=== PATIENT | female | born 1960 | race Caucasian/White ===

== ENCOUNTER 2022-09-23 09:51 | Outpatient (OUT) | payer OTHER, SELFPAY ==
--- NOTE | 2022-09-23 10:31 | XR_ITS ---
The [address] [address] Patient Name: IWLLY ALVAREZ MRN: [id number] date: 1960 Sex: F Assigned Patient Location: [facility] Current Patient Location: RAD Accession/Order Number: [id number] Exam Date: 09/23/2022 10:30 Report Date: 09/23/2022 19:05 At the request of: QUINTEN KILGORE Procedure: XR foot LT min 3V PROCEDURE: XR foot LT min 3V COMPARISON: None. HISTORY: LEFT FOOT PAIN FINDINGS: BONES:No acute fracture or dislocation. Moderate to severe degenerative changes most significant along the navicular cuneiform joints. There is bony remodeling of the navicular with subchondral lytic changes. Marginal osteophyte formation SOFT TISSUES:Moderate soft tissue swelling dorsal midfoot EFFUSION:None visible. OTHER: Negative. XR/XR foot LT min 3V IMPRESSION: Degenerative changes of the midfoot with soft tissue swelling Electronically authenticated by: KIT PACHECO Date: 09/23/2022 19:05
== END 2022-09-23 09:52 | disposition home or self-care (01) ==
LOC: RAD 09:52
PROVIDERS: Visit Provider Podiatrist Foot & Ankle Surgery
DX: M79.672 Pain in left foot (principal)
CPT/HCPCS: 73630

== ENCOUNTER 2022-09-30 09:12 | Outpatient (OUT) | payer OTHER, SELFPAY ==
--- NOTE | 2022-09-30 09:53 | CT_ITS ---
The [address] [address] Patient Name: WILLY ALVAREZ MRN: [id number] date: 1960 Sex: F Assigned Patient Location: CT Current Patient Location: CT Accession/Order Number: [id number] Exam Date: 09/30/2022 09:45 Report Date: 09/30/2022 12:48 At the request of: QUINTEN KILGORE Procedure: CT foot LT wo con CT foot LT wo con CLINICAL HISTORY: Left Ankle Primary Osteoarthritis M19.072. COMPARISON: 09/23/2022. TECHNIQUE: Noncontrast axial CT of the left foot. Bone and soft tissue windows provided for review. Sagittal and coronal reconstructions performed. Dose reduction techniques were achieved by using automated exposure control and/or adjustment of mA and/or kV according to patient size and/or use of iterative reconstruction technique. FINDINGS: No fracture or dislocation left foot. Mild diffuse soft tissue edema with no focal mass or collection rate plantar foot muscles. Plantar fascial and Achilles tendon grossly intact and normal thickness. Mild degenerative change throughout the IP joints. Minimal degenerative change of the great toe joint. Relatively severe degenerative change throughout much of the mid right especially talonavicular joint, navicular-cuneiform and second TMT joint. Mild degenerative change of the subtalar joints and tibiotalar joint. No erosions or periostitis. CT/CT foot LT wo con IMPRESSION: Degenerative change most significant at the left midfoot as detailed without acute bony process. Electronically authenticated by: MANSOOR MCINTOSH Date: 09/30/2022 12:48
== END 2022-09-30 09:13 | disposition home or self-care (01) ==
LOC: CT 09:13
PROVIDERS: Visit Provider Podiatrist Foot & Ankle Surgery
DX: M19.072 Primary osteoarthritis, left ankle and foot (principal); Q66.72 Congenital pes cavus, left foot
CPT/HCPCS: 73700

== ENCOUNTER 2022-11-03 12:20 | Outpatient (OUT) | payer OTHER, SELFPAY ==
--- NOTE | 2022-11-03 12:21 | ECG_ITS ---
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
--- NOTE | 2022-11-03 13:18 | PM.PRESUREVA ---
History of Present Illness History of Present Illness Chief complaint: osteoarthritis left ankle and foot Narrative: Patient presents for preadmission testing. Please see HPI from Dr. Carmona dated 10/21/2022. Review of Systems ROS Narrative Please see ROS from Dr. Carmona dated 10/21/2022. [facility] Medical History (Updated 11/03/22 @ 12:51 by Irma Dickson NP) Surgical History (Updated 11/03/22 @ 12:50 by Irma Dickson NP) Family History (Updated 11/03/22 @ 12:50 by Irma Dickson NP) Other Family history of DVT Family history of cancer Family history of heart disease Family history of myocardial infarction Family history of stroke Social History (Updated 11/03/22 @ 12:46 by Irma Dickson NP) Within the past year, how often did you have a drink containing alcohol: 2-4 times a month Smoking status: Former smoker Non-prescribed substance use: denies use Previous occupational history: Retired Highest level of school completed/degree received: high school graduate Meds Home Medications and Allergies Home Medications Medication Instructions Recorded Confirmed Type acetyltyrosine 350 mg-vitamin B6 5 cap PO 11/03/22 History mg capsule ascorbic acid (vitamin C) 1,000 mg 1 g PO DAILY 11/03/22 11/03/22 History capsule aspirin 81 mg capsule 81 mg PO .3 times a week 11/03/22 11/03/22 History calcium 100 mg capsule mg PO 11/03/22 History cholecalciferol (vitamin D3) 25 25 mcg PO DAILY 11/03/22 11/03/22 History mcg (1,000 unit) capsule lactobacillus combination no.4 3 3,000 mmu cells PO DAILY 11/03/22 11/03/22 History billion cell capsule (Probiotic) levothyroxine 25 mcg tablet 25 mcg PO QDAY 11/03/22 11/03/22 History magnesium 200 mg tablet 200 mg PO DAILY 11/03/22 11/03/22 History Allergies Allergy/AdvReac Type Severity Reaction Status Date / Time No Known Drug Allergies Allergy Verified 11/03/22 12:43 Exam Narrative Exam Narrative: Constitutional: Awake, alert, comfortable, well-appearing, nontoxic, interactive, vital signs as charted Head: Normocephalic, atraumatic Neck: Supple, normal appearance, normal range of motion, no meningeal signs, no lymphadenopathy Respiratory: No respiratory distress, breath sounds clear Cardiovascular: Regular rate and rhythm, strong and regular heart tones Psychiatric: Oriented ?3, normal affect Assessment and Plan Assessment and Plan (1) Ankle contracture: (2) Aseptic necrosis: (3) Arthritis: (4) Osteoarthritis of left ankle and foot: (5) Pes cavus: (6) Valgus deformity of foot: (7) Varus deformity, not elsewhere classified, left ankle: Plan Left midfoot/hindfoot fusion with osteotomies and soft tissue balancing, bone graft as needed, excision of bone lesion of anterior tibia scheduled with Dr. Carmona 11/17/2022.
[2022-11-03 13:30] LABS: Anion Gap 10.5; BUN Creatinine Ratio 18.5; Calcium 8.9 mg/dL (8.5-10.1); Carbon Dioxide 29.4 mmol/L (21.0-32.0); Chloride 103 mmol/L (98-107); Estimated GFR (African America >60 (>=60); Estimated GFR (Non-African Ame >60 (>=60); Glucose 88 mg/dL (74-106); Potassium 3.9 mmol/L (3.5-5.1); Sodium 139 mmol/L (136-145)
== END 2022-11-03 12:21 | disposition home or self-care (01) ==
LOC: PST 12:21
PROVIDERS: Visit Provider Podiatrist Foot & Ankle Surgery
DX: Z01.810 Encounter for preprocedural cardiovascular examination (principal); Z01.812 Encounter for preprocedural laboratory examination; M19.072 Primary osteoarthritis, left ankle and foot; M21.172 Varus deformity, not elsewhere classified, left ankle; I10 Essential (primary) hypertension
CPT/HCPCS: 80048; 93005; G0463

== ENCOUNTER 2022-11-18 16:21 | Observation (INO) | payer OTHER, SELFPAY ==
[2022-11-03 13:06] VITALS: BP 127/78; PULSE 71; RESP 18; TEMP 36.4; O2SAT 97; BMI 33.6
[2022-11-17] VITALS (12 sets, daily range): BP systolic 97–123; BP diastolic 62–77; PULSE 65–92; RESP 14–20; TEMP 36.3–37; O2SAT 91–98; BMI 34.3
--- NOTE | 2022-11-17 | XR_ITS ---
The [address] [address] Patient Name: WILLY ALVAREZ MRN: [id number] date: 1960 Sex: F Assigned Patient Location: [facility] Current Patient Location: [place] Accession/Order Number: [id number] Exam Date: 11/17/2022 13:18 Report Date: 11/18/2022 07:13 At the request of: QUINTEN IKLGORE Procedure: XR foot LT 2V EXAM: XR foot LT 2V HISTORY: Left foot fusion COMPARISON: 09/23/2022 TECHNIQUE: 2 minutes and 31 seconds of fluoroscopy. 17 images FINDINGS: 17 images demonstrate foot fusion utilizing multiple plates and screws. Posterior subtalar fusion. Medial foot fusion extending from the first metatarsal to the talus. Dorsal plate and screws across the talonavicular joint. 2 screws across the first and second tarsometatarsal joints XR/XR foot LT 2V IMPRESSION: Foot fusion as detailed above Electronically authenticated by: KIT PACHECO Date: 11/18/2022 07:13
[2022-11-17 08:54] LABS: Glucometer 93 mg/dL (74-106)
[2022-11-17 09:07] LABS: Basophils Absolute Auto 0.1 10^3/uL (0.0-0.1); Basophils Percent Auto 1.2 % (0.2-2.0); Eosinophils Absolute Auto 0.2 10^3/uL (0.0-0.7); Eosinophils Percent Auto 2.3 % (0.9-7.0); Hematocrit 43.2 % (36.0-48.0); Hemoglobin 14.3 g/dL (12.0-16.0); Immature Granulocytes Abs Auto 0.01 10^3/uL (0.00-0.03); Immature Granulocytes Pct Auto 0.2 % (0.0-0.5); Lymphocytes Percent Auto 30.4 % (20.5-60.0); Mean Corpuscular HGB Conc 33.1 g/dL (29.9-35.2); Mean Corpuscular Volume 93.5 fL (81.0-99.0); Mean Platelet Volume 9.1 fL (9.5-13.5); Monocytes Absolute Auto 0.6 10^3/uL (0.3-0.8); Monocytes Percent Auto 9.5 % (1.7-12.0); Neutrophils Absolute Auto 3.7 10^3/uL (1.4-6.5); Neutrophils Percent Auto 56.4 % (43.0-75.0); Platelet Count 318 10^3/uL (150-450); Red Blood Count 4.62 10^6/uL (4.20-5.40); Red Cell Distribution Width 12.6 % (11.0-15.0); White Blood Count 6.6 10^3/uL (4.0-11.0)
[2022-11-17] MEDS: LACTATED RINGER'S SOLUTION 1,000 ML 50 ML IV (10:00)
--- NOTE | 2022-11-17 11:21 | PC.NURSE ---
time out completed as documented. pt placed on 2L O2 via nasal cannula per policy. pt positioned per anesthesia and the femoral block began at 1100 and was completed at 1107. pt repositoned per , popliteal block began at 1108 and completed at 1112. pt tolerated well and had no complaints. pt positioned per her comfort. bed in lowest position with siderails up and bed in lowest position. vitals monitored throughout procedure and will be monitored until pt is taken back to the OR.
[2022-11-17] MEDS: CEFAZOLIN SODIUM/DEXTROSE,ISO 2 GM/50 ML PIGGYBACK IV ×2 (13:21→20:53)
--- NOTE | 2022-11-17 16:30 | P.ORON_ITS ---
Brief Operative Note Date of procedure: 11/17/22 Pre-op diagnosis: left foot arthritis, hindfoot varus/forefoot valgus, equinus, ostosis Post-op diagnosis: other (left midfoot and hindfoot arthritis, hindfoot varus/forefoot valgus, equinus, ostosis/phlebolith anterior leg; cavovarus foot deformity) Procedure: PROCEDURES PERFORMED: left subtalar joint fusion, talonavicular joint fusion, navicular cuneiform joint fusion, 1st and 2nd tarsometatarsal joint fusion, g astrocnemius recession, excision of a phlebolith, application of short leg splint and intraoperative fluoroscopy examination INTRAOPERATIVE FINDINGS: Hindfoot varus and forefoot valgus were notable with advanced arthritic changes along the medial column and midfoot joints as well as subtalar joint. Bone quality was soft and consistent with osteopenia/osteoporosis. Collapse of the lateral aspect of the navicular. Osteophytes and arthritic changes to the dorsal midfoot. less than 0.5 cm firm mass in anterior leg. Ankle joint dorsiflexion to neutral but not past. PROCEDURE IN DETAIL: Patient was identified in pre op and consent was reviewed. Correct side and site were identified and marked. Pre-op antibiotics were started. Patient was brought to OR suite and place on table in a supine position. General anesthesia was administered. Tourniquet applied. Operative extremity was prepped and draped in usual sterile fashion. Formal time-out was performed and the foot/ankle were exsanguinated and tourniquet inflated. A longitudinal incision over the medial aspect of the gastrocnemius aponeurosis was performed. Combination of sharp and blunt dissection with all bleeders being coagulated gained access to the gastrocnemius aponeurosis. Once the aponeurosis was isolated a speculum was inserted from the medial to lateral position just superficial to the aponeurosis. The speculum allowed full visualization of the aponeurosis and the foot was held in maximal dorsiflexed position. A fifteen blade was used to transversely incise the gastrocnemius aponeurosis until ten degrees of ankle joint dorsiflexion was obtained. The area was flushed with copious sterile saline and skin was closed in layers. She centimeter incision was placed over a palpable firm and small mass in the anterior leg. Blunt dissection along the fascial plane revealed a less than 0.5 cm mass which was excised and passed back table for specimen. The mass was encapsulated and calcified based on fluoroscopic examination. An incision from fibular malleolus to the cuboid was undertaken. Combination of sharp and blunt dissection gained access to the sinus tarsi. All bleeders were tied off or cauterized. EDB muscle was reflected and tagged for later approximation. Sinus tarsectomy was then performed. Hintermann distractor was used to access the subtalar joint which was prepped with curettes, osteotomes, rongeurs and drill with 2.0 mm drill.The posterior and the middle facet was thoroughly prepped. An incision between the tibialis anterior and extensor hallucis longus tendon was utilized with sharp and blunt dissection. All bleeders were coagulated. Care was taken to protect neurovascular and tendinous structures. Deep dissection to the talonavicular joint was performed followed by blunt dissection directly onto the joint expose the entire joint. The talar head and navicular were then prepped with curettes, osteotomes, rongeurs and drill with 2.0 mm drill. This incision was extended distally to the proximal 1st metatarsal shaft. Further dissection allowed exposure of the lateral talonavicular joint, naviculocuneiform joints as well as 1st and 2nd tarsometatarsal joints. the lateral aspect of the navicular was debrided of nonviable bone. These joints were also prepared for fusion using similar technique. There is noted that the area was poor and consistent with osteopenia/osteoporosis. All fusion sites were irrigated with copious amounts of sterile saline. Bone allograft was packed into all of the fusion sites. a 3 cm incision was placed on the posterior calcaneus and blunt dissection was taken down to bone. In the subtalar joint was pinned with a guidewire while reducing the heel into a rectus position. Once fluoroscopy confirmed proper placement and alignment an 8.0 mm bolt was placed across the subtalar joint noting significant compression. Then the medial column was pinned with multiple guidewires from the 1st metatarsal base and into the talar body while holding reduction. A 5.5 mm bolt was placed accordingly noting significant compression. additional fixation was placed across the subtalar joint through the posterior heel incision using a 5.5 mm bolt which was placed according to the enrollment nurse's standard directions. a sagittal saw and hand rasp were used to contour the medial column and midfoot removing all bony prominences and osteophytes. Then a 3.5 mm locking plate was placed over the dorsal talonavicular joint. a stab incision was placed fluoroscopically just lateral to the 2nd metatarsal shaft. A guidewire was used to pin the 2nd tarsometatarsal joint which was then fixated with a 4.0 mm cannulated screw. Then a stab incision was placed on the medial aspect of the 1st metatarsal and blunt dissection was taken down to bone. A guidewire was placed from the 1st metatarsal base across the tarsometatarsal joint and into the cuneiforms. Stability was achieved across the midfoot medial column and subtalar joints and all temporary fixation was removed. All surgical sites were flushed with copious saline then the medial column and subtalar joint incisions were closed deeply with absorbable suture and the tourniquet was deflated with a prompt hyperemic response. All incisions were then closed in layers. A dry sterile dressing consisting of Xeroform on the incisions followed by 4 x 4 gauze, ABDs, and Kerlix were applied. Multiple layers of cast padding were then applied to ensure all bony prominences were well-padded. A plaster posterior splint was then applied which was held in place by Jamison wraps. Capillary refill time to all digits was evaluated and had appropriate response. Patient tolerated the procedure and anesthesia well and was transported to the recovery room with vital signs stable. POSTOPERATIVE PLAN: Transfer to med/surg under hospitalist's care NWB operative foot/ankle Ice and elevation Kim-op antibiotics, multimodal pain medication and DVT prophylaxis ordered Consults: physical therapy & socially responsible investment adviser Estimated LOS 2-3 nights Will follow *NWB x 6-8 weeks Implants: Vilex redemption bolts, 4.0 mm cannulated screws, 3.5 mm TNJ plate Anesthesia: regional and General-ET Surgeon: Will Carmona Crossing Gateman: Simon Carter Estimated blood loss (mL): 25 Pathology: none sent Condition: stable Disposition: PACU Preoperative Details Reason for procedure: patient is a 62-year-old female who presents in my office for surgical consultation. She is a long standing history of midfoot and hindfoot arthritis which is caused progressive pain and dysfunction. 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 On examination she had reduced ankle joint dorsiflexion and a small palpable firm mass anterior leg which is consistent with a phlebolith. Due to failure to respond to nonsurgical treatment she wished to proceed with surgical intervention and I outlined the potential risks and benefits and all questions were answered.
[2022-11-17 17:11] LABS: Glucometer 114 mg/dL (74-106)
--- NOTE | 2022-11-17 17:19 | PC.NURSE ---
left toes pink and warm with brisk capillary refill
--- NOTE | 2022-11-17 17:42 | XR_ITS ---
The [address] [address] Patient Name: WILLY ALVAREZ MRN: [id number] date: 1960 Sex: F Assigned Patient Location: [facility] Current Patient Location: [facility] Accession/Order Number: [id number] Exam Date: 11/17/2022 17:35 Report Date: 11/18/2022 07:08 At the request of: JOANN BOWEN Procedure: XR ankle LT min 3V PROCEDURE: XR ankle LT min 3V, XR foot LT min 3V COMPARISON: None. HISTORY: postop xr pacu or floor FINDINGS: BONES:Subtalar fusion with 2 cannulated screws. Dorsal talonavicular fusion with a plate and screws. Fixation of the first and second tarsometatarsal joints with screws. Fixation of the medial foot with a screw extending from the first metatarsal to the calcaneus SOFT TISSUES:Negative. No visible soft tissue swelling. EFFUSION:None visible. OTHER: Bone details obscured by an overlying fiberglass cast XR/XR ankle LT min 3V IMPRESSION: Postsurgical changes as detailed above Electronically authenticated by: KIT PACHECO Date: 11/18/2022 07:08
--- NOTE | 2022-11-17 17:42 | XR_ITS ---
The [address] [address] Patient Name: WILLY ALVAREZ MRN: [id number] date: 1960 Sex: F Assigned Patient Location: [facility] Current Patient Location: [facility] Accession/Order Number: [id number] Exam Date: 11/17/2022 17:35 Report Date: 11/18/2022 07:08 At the request of: JOANN BOWEN Procedure: XR foot LT min 3V PROCEDURE: XR ankle LT min 3V, XR foot LT min 3V COMPARISON: None. HISTORY: postop xr pacu or floor FINDINGS: BONES:Subtalar fusion with 2 cannulated screws. Dorsal talonavicular fusion with a plate and screws. Fixation of the first and second tarsometatarsal joints with screws. Fixation of the medial foot with a screw extending from the first metatarsal to the calcaneus SOFT TISSUES:Negative. No visible soft tissue swelling. EFFUSION:None visible. OTHER: Bone details obscured by an overlying fiberglass cast XR/XR foot LT min 3V IMPRESSION: Postsurgical changes as detailed above Electronically authenticated by: KIT PACHECO Date: 11/18/2022 07:08
--- NOTE | 2022-11-17 18:02 | PC.NURSE ---
left toes pink and warm
--- NOTE | 2022-11-17 18:08 | PC.NURSE ---
left toes pink and warm
[2022-11-17] MEDS: ENOXAPARIN SODIUM 40 MG/0.4 ML SYRINGE SUBQ (18:14)
--- NOTE | 2022-11-17 19:54 | PC.NURSE ---
surgery to left foot dressing CDI
[2022-11-18] MEDS: CEFAZOLIN SODIUM/DEXTROSE,ISO 2 GM/50 ML PIGGYBACK IV ×3 (04:04→20:32)
[2022-11-18] MEDS: OXYCODONE HCL 5 MG TABLET PO ×2 (04:11→20:24)
[2022-11-18 06:00] VITALS: BP 111/64; PULSE 75; RESP 18; TEMP 36.8; O2SAT 96
--- NOTE | 2022-11-18 08:19 | CM.NOTE ---
Rounds made with Dr. Murguia, PT will evaluate pt today for discharge needs. Pt has used crutches in the past without issues. Pt states I also have been practicing at home.
[2022-11-18] MEDS: OXYCODONE HCL 5 MG TABLET 10 MG PO (08:36)
--- NOTE | 2022-11-18 08:54 | PM.PN ---
Progress Note: Subjective Subjective Interval history: Patient examined evaluated resting comfortably at bedside. Denies any acute events overnight. POD #1 s/p left subtalar joint arthrodesis, medial column fusion, second TMT fusion, GR, excision of phlebolith DOS 11/17/2022. She denies any pain at time of visit, stating the leg is still numb from her block. Denies any other acute blood complaints at this time. Dressing remains CDI and has been compliant with nonweightbearing to left lower extremity. Denies any constitutional symptoms today. Exam Narrative Exam Narrative: LLE dressing left CDI. Vascular: CFT intact to digits. Skin temperature warm to warm from proximal distal to dressing without any focal increase. No ascending lymphangitis. No edema proximal or distal to dressing. Neuro: Light touch decreased to digits. No hypersensitivity. Derm: Dressing CDI. No open lesions proximal or distal to dressing. MSK: Active range of motion of digits absent consistent with regional block. Passive range of motion of digits supple without pain. Compartment soft compressible no pain with calf or thigh compression. Constitutional Vital Signs, click to edit/add: Last Vital Signs Temp 98.3 F 11/18/22 06:00 Pulse 75 11/18/22 06:00 Resp 18 11/18/22 06:00 BP 111/64 11/18/22 06:00 Pulse Ox 96 11/18/22 06:00 O2 Del Method Room Air 11/18/22 06:00 O2 Flow Rate 3 11/17/22 17:37 Progress Note: Objective Labs Labs: Short CBC 11/17/22 Range/Units 08:43 WBC 6.6 (4.0-11.0) 10^3/uL Hgb 14.3 (12.0-16.0) g/dL Hct 43.2 (36.0-48.0) % Plt Count 318 (150-450) 10^3/uL Progress Note: A&P Assessment and Plan (1) Varus deformity, not elsewhere classified, left ankle: (2) Varicose vein of leg: (3) Valgus deformity of foot: (4) Pes cavus: (5) Aseptic necrosis: (6) Arthritis: (7) Ankle contracture: (8) Hypothyroidism: Plan Patient examined evaluated. All findings gume with the patient all questions answered for satisfaction. Labs and imaging reviewed. Left lower extremity dressing to remain CDI. Remain nonweightbearing to left lower extremity. PT and social work consults pending for today. Anticipate DC home unless other recommendations are made based on these visits. Pain medications, prophylactic antibiotics, levothyroxine orders in place. Dr. Murguia on board for primary and med management. We will follow. Please call with questions or concerns.
[2022-11-18] MEDS: LEVOTHYROXINE SODIUM 25 MCG TABLET PO (09:31)
--- NOTE | 2022-11-18 10:02 | P.PN_ITS ---
Progress Note: Subjective Subjective Interval history: Pain well controlled still having numbness and leg Exam Constitutional Vital Signs, click to edit/add: Last Vital Signs Temp 98.3 F 11/18/22 06:00 Pulse 75 11/18/22 06:00 Resp 18 11/18/22 06:00 BP 111/64 11/18/22 06:00 Pulse Ox 96 11/18/22 06:00 O2 Del Method Room Air 11/18/22 06:00 O2 Flow Rate 3 11/17/22 17:37 Documenting provider has reviewed patient's vital signs: yes Common normals: no apparent distress Chest Common normals: inspection of chest normal Respiratory Common normals: normal respiratory effort Cardio Common normals: regular rate and regular rhythm Progress Note: A&P Assessment and Plan (1) Varus deformity, not elsewhere classified, left ankle: (2) Varicose vein of leg: (3) Valgus deformity of foot: (4) Pes cavus: (5) Aseptic necrosis: (6) Arthritis: (7) Ankle contracture: (8) Hypothyroidism: (9) Peptic ulcer: Plan 20 problems-see notes from vegetable inspector, discharge disposition per podiatry Lymphedema-leg elevation and monitor. Hypothyroidism-continue with home medications History of peptic ulcer disease-currently without symptoms
--- NOTE | 2022-11-18 10:22 | SWNOTE1 ---
SW met with pt to discuss dc needs. Pt lives at home and her niece will be staying with her for a week and then her son is flying in to stay with her. Pt has walker, crutches, bedside commode, and knee scooter at home. She is going to try crutches as she has done them before. She is non-weight bearing for 8 weeks. Pt is waiting for physical therapy to come in and work with her. She voiced she should not have any needs at discharge. SW to follow as needed.
[2022-11-18] MEDS: CALCIUM CARBONATE 600 MG/VITAMIN D3 400 IU TABLET 1 TAB PO (10:30)
[2022-11-18] MEDS: ASPIRIN 81 MG TABLET.DR PO ×2 (10:30→20:24)
[2022-11-18] MEDS: L. ACIDOPHILUS/L.BULGARICUS 1 PACKET GRAN.PACK PO (11:40)
[2022-11-18] MEDS: ASCORBIC ACID 500 MG TABLET 1000 MG PO (11:40)
[2022-11-18] MEDS: MAGNESIUM OXIDE 400 MG TABLET 200 MG PO (11:40)
[2022-11-18] MEDS: CHOLECALCIFEROL (VITAMIN D3) 25 MCG/1,000 UNITS TABLET PO (11:40)
[2022-11-18] MEDS: KETOROLAC TROMETHAMINE 30 MG/ML VIAL 15 MG IM (11:42)
[2022-11-18] MEDS: OXYCODONE HCL 15 MG TABLET PO (13:52)
[2022-11-18 14:39] VITALS: BP 121/71; PULSE 71; RESP 16; TEMP 36.5; O2SAT 96
[2022-11-18] MEDS: ACETAMINOPHEN 500 MG TABLET 1000 MG PO (15:36)
[2022-11-18] MEDS: ENOXAPARIN SODIUM 40 MG/0.4 ML SYRINGE SUBQ (17:46)
[2022-11-18 22:00] VITALS: BP 104/67; PULSE 71; RESP 20; TEMP 36.6; O2SAT 92
[2022-11-19] MEDS: ACETAMINOPHEN 500 MG TABLET 1000 MG PO (00:25)
[2022-11-19 05:17] VITALS: BP 142/79; PULSE 81; TEMP 36.7; O2SAT 92
[2022-11-19] MEDS: OXYCODONE HCL 15 MG TABLET PO (06:09)
[2022-11-19] MEDS: LEVOTHYROXINE SODIUM 25 MCG TABLET PO (06:09)
[2022-11-19 07:49] VITALS: RESP 16
--- NOTE | 2022-11-19 08:54 | PM.PN ---
Progress Note: Subjective Subjective Interval history: Patient examined evaluated resting comfortably at bedside. Denies any acute events overnight. POD #2 s/p left subtalar joint arthrodesis, medial column fusion, second TMT fusion, GR, excision of phlebolith DOS 11/17/2022. She admits to minimal pain at time of visit, controlled w/ PO meds. States block wore off yest evening and was having pain up to 6/10 but has come down since. Denies any other acute complaints at this time. Dressing remains CDI and has been compliant with nonweightbearing to left lower extremity. Denies any constitutional symptoms today. Exam Narrative Exam Narrative: LLE dressing left CDI. Vascular: CFT intact to digits. Skin temperature warm to warm from proximal distal to dressing without any focal increase. No ascending lymphangitis. No edema proximal or distal to dressing. Neuro: Light touch decreased to digits. No hypersensitivity. Derm: Dressing CDI. No open lesions proximal or distal to dressing. MSK: Active range of motion of digits absent consistent with regional block. Passive range of motion of digits supple without pain. Compartment soft compressible no pain with calf or thigh compression. Constitutional Vital Signs, click to edit/add: Last Vital Signs Temp 98.1 F 11/19/22 05:17 Pulse 81 11/19/22 05:17 Resp 16 11/19/22 07:49 BP 142/79 H 11/19/22 05:17 Pulse Ox 92 L 11/19/22 05:17 O2 Del Method Room Air 11/19/22 05:17 O2 Flow Rate 3 11/17/22 17:37 Progress Note: A&P Assessment and Plan (1) Varus deformity, not elsewhere classified, left ankle: (2) Varicose vein of leg: (3) Valgus deformity of foot: (4) Pes cavus: (5) Aseptic necrosis: (6) Arthritis: (7) Ankle contracture: (8) Hypothyroidism: (9) Peptic ulcer: Plan Patient examined evaluated. All findings discussed with the patient all questions answered to their satisfaction. Labs WNL and imaging reviewed. Left lower extremity dressing to remain CDI. Remain nonweightbearing to left lower extremity. PT and social work consults cleared for DC home. Stable to DC from podiatry perspective Anticipate DC home today. Pain medications, prophylactic antibiotics, levothyroxine orders in place. Dr. Murguia on board for primary and med management. We will follow. Please call with questions or concerns.
--- NOTE | 2022-11-19 09:40 | CM.NOTE ---
Rounds made with kalia Santana for discharge to home today. No discharge needs identified.
--- NOTE | 2022-11-19 09:41 | P.DS_ITS ---
DS: Providers Provider Date of admission: 11/18/22 16:21 Primary care physician: Non-Staff Physician, Consults: 11/17/22 17:12 Consult to Supervisor Typesetting Routine Has provider been notified: No Reason for consult:: Care Home Physical Therapy Eval and Treat Routine Reason for consultation: s/p L hingfoot/midfoot fusion NWB LLE Has provider been notified: No DS: Diagnosis Discharge Diagnosis (1) Varus deformity, not elsewhere classified, left ankle: (2) Varicose vein of leg: (3) Valgus deformity of foot: (4) Pes cavus: (5) Aseptic necrosis: (6) Arthritis: (7) Ankle contracture: (8) Hypothyroidism: (9) Peptic ulcer: Assessment and plan: podiatric: Problems-see notes from plate shear operator, discharge disposition per podiatry Lymphedema-leg elevation and monitor. Hypothyroidism-continue with home medications History of peptic ulcer disease-currently without symptoms ? Plan Patient mated for surgical intervention for varus deformity and valgus deformity of her foot. See operative note. Patient did not have significant control of her pain on the day after surgery. So she was kept 1 additional day. Her pain is fairly well controlled currently. Reviewed plan with podiatry but likely discharged home today in improving physician condition. Medications see list. Follow-up with podiatry per protocol DS: Summary Time Spent with Patient Time attestation: Total time spent providing and/or coordinating discharge services: Exam Constitutional Vital Signs, click to edit/add: Last Vital Signs Temp 98.1 F 11/19/22 05:17 Pulse 81 11/19/22 05:17 Resp 16 11/19/22 07:49 BP 142/79 H 11/19/22 05:17 Pulse Ox 92 L 11/19/22 05:17 O2 Del Method Room Air 11/19/22 05:17 O2 Flow Rate 3 11/17/22 17:37 Documenting provider has reviewed patient's vital signs: yes Common normals: no apparent distress Chest Common normals: inspection of chest normal Respiratory Common normals: normal respiratory effort Cardio Common normals: regular rate and regular rhythm Discharge Plan Discharge Disposition: Home, Self-Care Condition: Good Discharge Medications: New oxycodone 5 mg Tablet 5 mg PO Q4H MDD 6 PRN (Reason: Pain Scale 2-3) 7 Days Qty: 1 0RF Continued levothyroxine 25 mcg tablet 25 mcg PO QDAY acetyltyrosine-vitamin B6 350-5 mg capsule PO ascorbic acid (vitamin C) 1,000 mg capsule 1 g PO DAILY cholecalciferol (vitamin D3) 25 mcg (1,000 unit) capsule 25 mcg PO DAILY calcium 100 mg capsule PO Probiotic 3 billion cell capsule 3,000 mmu cells PO DAILY Rx Instructions: administer with a meal magnesium 200 mg tablet 200 mg PO DAILY alendronate [Fosamax] 70 mg tablet 70 mg PO QWEEK aspirin [Adult Aspirin Regimen] 81 mg tablet,delayed release (DR/EC) 81 mg PO BID Patient Instructions: Oxycodone/Acetaminophen (By mouth), Non Weight Bearing Activity (DC) Follow Up Appointments: Dr Carmona Nov 25 at 10:30 AM Discharge Date/Time: 11/19/22 14:09
[2022-11-19] MEDS: MAGNESIUM OXIDE 400 MG TABLET 200 MG PO (10:19)
[2022-11-19] MEDS: CALCIUM CARBONATE 600 MG/VITAMIN D3 400 IU TABLET 1 TAB PO (10:19)
[2022-11-19] MEDS: ASCORBIC ACID 500 MG TABLET 1000 MG PO (10:19)
[2022-11-19] MEDS: L. ACIDOPHILUS/L.BULGARICUS 1 PACKET GRAN.PACK PO (10:21)
[2022-11-19] MEDS: ASPIRIN 81 MG TABLET.DR PO (10:22)
[2022-11-19] MEDS: CHOLECALCIFEROL (VITAMIN D3) 25 MCG/1,000 UNITS TABLET PO (10:22)
[2022-11-19] MEDS: ALENDRONATE SODIUM 70 MG TABLET PO (10:24)
[2022-11-19] MEDS: OXYCODONE HCL 5 MG TABLET 10 MG PO ×2 (10:39→14:02)
--- NOTE | 2022-11-19 11:20 | PT.DAILY ---
Physical Therapy Daily Note PT Daily Note/Assess Start: 11/19/22 11:15 Freq: Status: Active Protocol: Document 11/19/22 11:15 MCKAYLA (Rec: 11/19/22 11:20 MCKAYLA [id number]) Physical Therapy Daily Note/Assessment Time In/Time Out Time In 10:32 Time Out 10:50 Pain In Pain Level 4 Pain Out Pain Level 6 Subjective Subjective Pt supine upon arrival. Agrees to PT. Moderate pain this morning in L LE. Therapeutic Exercise Time Therapeutic Exercise Minutes (minutes) 5 Therapeutic Exercise Units 0 Therapeutic Exercise Treatment Therapeutic Exercise Treatment Reviewed supine/sitting strengthening ex. Therapeutic Activity Time Therapeutic Activity Minutes (minutes) 10 Therapeutic Activity Units 1 Therapeutic Activity Treatment Bed Mobility Ability Modified Independent Therapeutic Activity Comments Pt completes bed mobs with Radha as she requires increased time to complete transfer. Sit>stand to RW IND. Pt amb in mauro 100'x2 with 1x standing rest break. Pt is able to maintain NWB to L LE throughout session. Sits EOB upon completion with call light in reach and needs met. Pt defers stair training this morning as this is her 5th foot surgery and she uses crutches for stair negotiation at home and feels confident with this, her only stairs are to enter her house 3x steps. Niece will be staying with her for 1 week. Total Physical Therapy Time Total Therapy Minutes 15 Total Physical Therapy Units 1 Summary Daily Note Summary Good mobility. Able to maintain NWB on L LE throughout session. No near falls or LOB with gait training with RW.
== END 2022-11-19 14:09 | disposition home or self-care (01) ==
LOC: SURGOUT 11-19 08:35 → MS 11-19 08:35
PROVIDERS: Anesthesiology; Podiatrist Foot & Ankle Surgery; Admitting Provider Family Medicine; Visit Provider Family Medicine
PROC: (CPT 27635; principal; 2022-11-17 10:15)
DX: M19.072 Primary osteoarthritis, left ankle and foot (principal); M87.00 Idiopathic aseptic necrosis of unspecified bone; M89.8X7 Other specified disorders of bone, ankle and foot; M21.072 Valgus deformity, not elsewhere classified, left ankle; M21.172 Varus deformity, not elsewhere classified, left ankle; M21.6X2 Other acquired deformities of left foot; M24.572 Contracture, left ankle; E03.9 Hypothyroidism, unspecified; Q66.72 Congenital pes cavus, left foot; I89.0 Lymphedema, not elsewhere classified; M81.0 Age-related osteoporosis without current pathological fracture; M85.862 Other specified disorders of bone density and structure, left lower leg; Z87.11 Personal history of peptic ulcer disease; I83.91 Asymptomatic varicose veins of right lower extremity; Z79.82 Long term (current) use of aspirin; Z79.890 Hormone replacement therapy; Z79.899 Other long term (current) drug therapy; Z85.43 Personal history of malignant neoplasm of ovary; Z96.619 Presence of unspecified artificial shoulder joint; Z90.710 Acquired absence of both cervix and uterus; Z87.891 Personal history of nicotine dependence; G62.9 Polyneuropathy, unspecified
CPT/HCPCS: 27635; 27687; 28725; 28730; 28740; 36415; 64445; 64447; 73610; 73620; 73630; 76000; 76942; 82948; 85025; 88304; 88311; 96365; 96366; 96372; 97161; 97530; C1713; G0378; J2704

== ENCOUNTER 2022-12-09 08:39 | Outpatient (OUT) | payer OTHER, SELFPAY ==
--- NOTE | 2022-12-09 | XR_ITS ---
The [address] [address] Patient Name: WILLY ALVAREZ MRN: [id number] date: 1960 Sex: F Assigned Patient Location: RAD Current Patient Location: [facility] Accession/Order Number: [id number] Exam Date: 12/09/2022 09:15 Report Date: 12/09/2022 21:35 At the request of: QUINTEN KILGORE Procedure: XR foot LT min 3V EXAM: XR foot LT min 3V HISTORY: LEFT FOOT F/U AFTER SX COMPARISON: 11/17/2022 TECHNIQUE: Routine views of the XR foot LT min 3V FINDINGS/ XR/XR foot LT min 3V IMPRESSION: 1. No acute fractures. Normal mineralization. 2. Dorsal soft tissue swelling. 3. First/second TMT, talocalcaneal, talonavicular arthrodesis. Maintained overall alignment without evidence for hardware complication. Electronically authenticated by: TIFFANY MAHAJAN Date: 12/09/2022 21:35
== END 2022-12-09 08:40 | disposition home or self-care (01) ==
LOC: RAD 08:39
PROVIDERS: Visit Provider Podiatrist Foot & Ankle Surgery
DX: Q66.72 Congenital pes cavus, left foot (principal)
CPT/HCPCS: 73630

== ENCOUNTER 2023-01-01 13:04 | Outpatient (OUT) | payer OTHER, SELFPAY ==
--- NOTE | 2023-01-01 | XR_ITS ---
The [address] [address] Patient Name: WILLY ALVAREZ MRN: [id number] date: 1960 Sex: F Assigned Patient Location: [facility] Current Patient Location: Accession/Order Number: [id number] Exam Date: 01/01/2023 13:40 Report Date: 01/02/2023 10:18 At the request of: ARTEM HAYDEN Procedure: XR foot LT min 3V EXAM: XR foot LT min 3V HISTORY: LEFT FOOT PAIN COMPARISON: 12/09/2022 TECHNIQUE: Routine views of the XR foot LT min 3V FINDINGS/ XR/XR foot LT min 3V IMPRESSION: 1. No acute fractures. Disuse osteopenia. 2. Dorsal midfoot swelling. 3. First and second TMT, talocalcaneal, talonavicular arthrodesis. Maintained overall alignment without evidence for complication. Electronically authenticated by: TIFFANY MAHAJAN Date: 01/02/2023 10:18
== END 2023-01-01 13:05 | disposition home or self-care (01) ==
LOC: RAD 13:04
PROVIDERS: Visit Provider Physician Assistant
DX: M79.672 Pain in left foot (principal); M85.872 Other specified disorders of bone density and structure, left ankle and foot; Z98.1 Arthrodesis status; R22.42 Localized swelling, mass and lump, left lower limb
CPT/HCPCS: 73630

== ENCOUNTER 2023-01-23 09:36 | Outpatient (OUT) | payer OTHER, SELFPAY ==
--- NOTE | 2023-01-23 | XR_ITS ---
The [address] [address] Patient Name: WILLY ALVAREZ MRN: [id number] date: 1960 Sex: F Assigned Patient Location: [facility] Current Patient Location: [facility] Accession/Order Number: [id number] Exam Date: 01/23/2023 09:57 Report Date: 01/24/2023 00:04 At the request of: ARTEM HAYDEN Procedure: XR foot LT min 3V PROCEDURE: XR foot LT min 3V HISTORY: LEFT FOOT PAIN COMPARISON: XR foot left 01/01/2023 FINDINGS: BONES:Mechanical fusion of the hindfoot and midfoot without appreciable hardware fracture or loosening. No bone fracture dislocation. SOFT TISSUES:Prominent dorsal soft tissue swelling. EFFUSION:None visible. OTHER: Negative. XR/XR foot LT min 3V IMPRESSION: 1. Interval increase in dorsal soft tissue swelling of uncertain etiology. 2. Stable surgical changes without evidence of hardware failure or change in alignment. Electronically authenticated by: LACHELLE AN Date: 01/24/2023 00:04
== END 2023-01-23 09:37 | disposition home or self-care (01) ==
LOC: RAD 09:36
PROVIDERS: Visit Provider Physician Assistant
DX: Q66.72 Congenital pes cavus, left foot (principal)
CPT/HCPCS: 73630

== ENCOUNTER 2023-02-10 09:05 | Outpatient (OUT) | payer OTHER, SELFPAY ==
--- NOTE | 2023-02-10 | XR_ITS ---
The [address] [address] Patient Name: WILLY ALVAREZ MRN: [id number] date: 1960 Sex: F Assigned Patient Location: [facility] Current Patient Location: [facility] Accession/Order Number: [id number] Exam Date: 02/10/2023 09:10 Report Date: 02/10/2023 23:51 At the request of: QUINTEN KILGORE Procedure: XR foot LT min 3V EXAM: XR foot LT min 3V HISTORY: LEFT FOOT PAIN COMPARISON: 01/23/2023 TECHNIQUE: 4 view study FINDINGS: Again, there are findings associated with hindfoot/midfoot arthrodeses with 2 screws bridging the subtalar joint, a dorsal plate and screws bridging the talonavicular joint, a cannulated screw extending from proximal aspect of the first metatarsal through the medial cuneiform, navicular, and into the talar head. Additionally, 2 cannulated screws bridge the second tarsometatarsal joint. Hardware and alignment are stable compared with prior study of one month ago. Forefoot soft tissue swelling is improved. XR/XR foot LT min 3V IMPRESSION: Stable findings associated with hindfoot/midfoot arthrodeses. Electronically authenticated by: Chantale ORTIZ Date: 02/10/2023 23:51
== END 2023-02-10 09:06 | disposition home or self-care (01) ==
LOC: RAD 09:05
PROVIDERS: Visit Provider Podiatrist Foot & Ankle Surgery
DX: Q66.72 Congenital pes cavus, left foot (principal)
CPT/HCPCS: 73630

== ENCOUNTER 2023-03-05 07:29 | Outpatient (RCR) | payer OTHER, SELFPAY | END 2023-03-08 23:59 | disposition home or self-care (01) | LOC: INF 07:29 | DX: Z85.43 Personal history of malignant neoplasm of ovary (principal) ==

== ENCOUNTER 2023-07-01 09:54 | Outpatient (OUT) | payer OTHER, SELFPAY ==
--- NOTE | 2023-07-01 | XR_ITS ---
The [address] [address] Patient Name: WILLY ALVAREZ MRN: [id number] date: 1960 Sex: F Assigned Patient Location: Current Patient Location: Accession/Order Number: [id number] Exam Date: 07/01/2023 09:55 Report Date: 07/02/2023 06:55 At the request of: QUINTEN KILGORE Procedure: XR foot LT min 3V PROCEDURE: XR foot LT min 3V HISTORY: LEFT FOOT PAIN COMPARISON: XR foot left 02/10/2023 FINDINGS: BONES:Prior mechanical fusion of the talonavicular and talocalcaneal joints. Mechanical fusion of the first and second tarsal-metatarsal joints. No appreciable hardware fracture or loosening. No bone fracture dislocation. SOFT TISSUES:Mild dorsal swelling, but less than previously seen. EFFUSION:None visible. OTHER: Negative. XR/XR foot LT min 3V IMPRESSION: 1. Stable surgical changes without evidence of hardware failure or change in alignment. Electronically authenticated by: LACHELLE AN Date: 07/02/2023 06:55
== END 2023-07-01 09:55 | disposition home or self-care (01) ==
LOC: EC 09:54
PROVIDERS: Visit Provider Podiatrist Foot & Ankle Surgery
DX: Q66.72 Congenital pes cavus, left foot (principal); Z98.890 Other specified postprocedural states
CPT/HCPCS: 73630

== ENCOUNTER 2023-09-15 07:30 | Outpatient (RCR) | payer OTHER, SELFPAY | END 2023-09-17 15:39 | disposition home or self-care (01) | LOC: HEMC 07:30 | PROVIDERS: Visit Provider Internal Medicine Hematology & Oncology | DX: C56.3 Malignant neoplasm of bilateral ovaries (principal); G62.9 Polyneuropathy, unspecified | CPT/HCPCS: G0463 ==

== ENCOUNTER 2023-10-15 20:24 | Outpatient (REF) | payer OTHER, SELFPAY | END 2023-10-15 20:25 | disposition home or self-care (01) | LOC: LAB 20:24 | PROVIDERS: Visit Provider Obstetrics & Gynecology | DX: Z01.419 Encounter for gynecological examination (general) (routine) without abnormal findings (principal) | CPT/HCPCS: 87624; 88175 ==

== ENCOUNTER 2023-11-03 08:35 | Outpatient (OUT) | payer OTHER, SELFPAY ==
[2023-11-03 09:24] LABS: Estimated GFR (African America >60 (>=60); Estimated GFR (Non-African Ame >60 (>=60)
--- NOTE | 2023-11-03 10:45 | CT_ITS ---
[address] [address] Patient Name: WILLY ALVAREZ MRN: [id number] date: 1960 Sex: F Assigned Patient Location: CT Current Patient Location: Accession/Order Number: [id number] Exam Date: 11/03/2023 10:25 Report Date: 11/04/2023 06:07 At the request of: AISHA SAAVEDRA Procedure: CT abdomen pelvis w con EXAMINATION: CT chest w con, CT abdomen pelvis w con HISTORY: Malignant Neoplasm Ovary, Elevated Cancer Antigen COMPARISON: CT chest abdomen pelvis 01/14/2022 TECHNIQUE: Axial, Coronal, and Sagittal CT images were obtained without and/or with IV contrast as indicated by examination type. Dose reduction techniques were achieved by using automated exposure control and/or adjustment of mA and/or kV according to patient size and/or use of iterative reconstruction technique. FINDINGS: LUNGS: No visible pulmonary disease. PLEURA: No mass or effusion. VASCULATURE: No visible pulmonary arterial thrombus or attenuation. LINWOOD: No mass or adenopathy. MEDIASTINUM: No mass or adenopathy. CARDIAC: No enlargement, pericardial thickening, or pericardial effusion. AORTA: No aneurysm or dissection.. CHEST WALL: No mass or axillary adenopathy. LIVER: No enlargement, atrophy, abnormal density, or significant focal lesion. BILIARY: No dilatation or calcification. PANCREAS: No lesion, fluid collection, ductal dilatation, or atrophy. SPLEEN: No enlargement or focal lesion. ADRENALS: No mass or enlargement. KIDNEYS: No mass, obstruction, or calcification. BOWEL/MESENTERY: No visible mass, obstruction, or bowel wall thickening. Normal appendix. AORTA/VASCULAR: No aneurysm. RETROPERITONEUM: No mass or adenopathy. LYMPH NODES: No adenopathy. URINARY BLADDER: No visible focal wall thickening, lesion, or calculus. PELVIC ORGANS: Hysterectomy. ABDOMINAL WALL: Small fat filled umbilical hernia without strangulation. BONES: Scoliotic curvature of thoracic spine. No bony lesion or fracture. OTHER: Negative. CT/CT abdomen pelvis w con IMPRESSION: 1. No evidence of recurrent or metastatic disease. Electronically authenticated by: LACHELLE AN Date: 11/04/2023 06:07
--- NOTE | 2023-11-03 10:45 | CT_ITS ---
[address] [address] Patient Name: WILLY ALVAREZ MRN: [id number] date: 1960 Sex: F Assigned Patient Location: CT Current Patient Location: Accession/Order Number: [id number] Exam Date: 11/03/2023 10:25 Report Date: 11/04/2023 06:07 At the request of: AISHA SAAVEDRA Procedure: CT chest w con EXAMINATION: CT chest w con, CT abdomen pelvis w con HISTORY: Malignant Neoplasm Ovary, Elevated Cancer Antigen COMPARISON: CT chest abdomen pelvis 01/14/2022 TECHNIQUE: Axial, Coronal, and Sagittal CT images were obtained without and/or with IV contrast as indicated by examination type. Dose reduction techniques were achieved by using automated exposure control and/or adjustment of mA and/or kV according to patient size and/or use of iterative reconstruction technique. FINDINGS: LUNGS: No visible pulmonary disease. PLEURA: No mass or effusion. VASCULATURE: No visible pulmonary arterial thrombus or attenuation. LINWOOD: No mass or adenopathy. MEDIASTINUM: No mass or adenopathy. CARDIAC: No enlargement, pericardial thickening, or pericardial effusion. AORTA: No aneurysm or dissection.. CHEST WALL: No mass or axillary adenopathy. LIVER: No enlargement, atrophy, abnormal density, or significant focal lesion. BILIARY: No dilatation or calcification. PANCREAS: No lesion, fluid collection, ductal dilatation, or atrophy. SPLEEN: No enlargement or focal lesion. ADRENALS: No mass or enlargement. KIDNEYS: No mass, obstruction, or calcification. BOWEL/MESENTERY: No visible mass, obstruction, or bowel wall thickening. Normal appendix. AORTA/VASCULAR: No aneurysm. RETROPERITONEUM: No mass or adenopathy. LYMPH NODES: No adenopathy. URINARY BLADDER: No visible focal wall thickening, lesion, or calculus. PELVIC ORGANS: Hysterectomy. ABDOMINAL WALL: Small fat filled umbilical hernia without strangulation. BONES: Scoliotic curvature of thoracic spine. No bony lesion or fracture. OTHER: Negative. CT/CT chest w con IMPRESSION: 1. No evidence of recurrent or metastatic disease. Electronically authenticated by: LACHELLE AN Date: 11/04/2023 06:07
== END 2023-11-03 08:36 | disposition home or self-care (01) ==
LOC: CT 08:36
PROVIDERS: Visit Provider Internal Medicine Hematology & Oncology
DX: R97.1 Elevated cancer antigen 125 [CA 125] (principal); C56.9 Malignant neoplasm of unspecified ovary; C56.1 Malignant neoplasm of right ovary; C79.62 Secondary malignant neoplasm of left ovary
CPT/HCPCS: 36415; 71260; 74177; 82565; 84520; Q9967

== ENCOUNTER 2023-11-03 09:16 | Outpatient (OUT) | payer OTHER, SELFPAY | END 2023-11-03 09:17 | disposition home or self-care (01) | PROVIDERS: Visit Provider Internal Medicine Hematology & Oncology | DX: C56.3 Malignant neoplasm of bilateral ovaries (principal); R97.1 Elevated cancer antigen 125 [CA 125]; Z87.891 Personal history of nicotine dependence; Z90.710 Acquired absence of both cervix and uterus; Z80.3 Family history of malignant neoplasm of breast; G62.9 Polyneuropathy, unspecified | CPT/HCPCS: G0463 ==

== ENCOUNTER 2024-05-17 07:34 | Outpatient (RCR) | payer OTHER, SELFPAY | END 2024-05-18 08:03 | disposition home or self-care (01) | LOC: HEMC 07:34 | PROVIDERS: Visit Provider Internal Medicine Hematology & Oncology | DX: C56.1 Malignant neoplasm of right ovary (principal); C79.62 Secondary malignant neoplasm of left ovary; Z90.710 Acquired absence of both cervix and uterus; R97.1 Elevated cancer antigen 125 [CA 125]; C56.3 Malignant neoplasm of bilateral ovaries | CPT/HCPCS: G0463 ==

== ENCOUNTER 2024-12-28 15:20 | Outpatient (REF) | payer SELFPAY ==
[2025-01-01 16:08] LABS: Age Gdln ACOG Testing Note (.); IGP, Aptima HPV, rfx 16/18,45 Note (.)
== END 2024-12-28 15:21 | disposition home or self-care (01) ==
LOC: LAB 15:20
PROVIDERS: Visit Provider Physician Assistant
DX: Z01.419 Encounter for gynecological examination (general) (routine) without abnormal findings (principal)
CPT/HCPCS: 87624; 88175

== ENCOUNTER 2024-12-30 08:01 | Outpatient (OUT) | payer MEDICARE, OTHER, SELFPAY ==
--- OUTSIDE RECORDS SUMMARY | 2023-09-15 07:00 | XMS_ITS ---
Author Organization The [facility] in [place] Address [address] [place] [address] Care Team Providers Care Mill Stenciler Name Role Phone Roman EVANGELISTA, Lucila Primary Care Provider Olivia vailable Nelida Easton Unavailable [phone] REASON FOR VISIT New PT Onc Encounters Encounter Location Date Provider Diagnosis [facility] On[facility] [address] [place] [phone] 09/15/2023 Nelida Easton Plan Of Treatment Next Appt Details Provider Name:Nelida Easton , 01/03/2025 09:30:00 AM, [address] [place], [address], Progress Notes * Kellee ALVAREZB:[birth year] (64 yo F)Acc No.[id number]:09/15/2023 UNLOCKED PROGRESS NOTE Progress Notes Patient: Orion Darline MUJICA :?Nelida Easton M.D.:1960???Age:63 Y ???Sex:FemaleDate:4Phone:[phone]:[facility] [address] [phone]:Lucila Owens MD Subjective: * Chief Complaints: * 1 . New PT Onc. * Medical History: Objective: * Vitals: Assessment: Plan: * Treatment: * * Electronic signature of Nelida Easton MD, [id number] on 12/30/2024 at 08:12 AM EDTSign off status: PendingVisit Status:?VOICEMSG (Voice) * Provider: Felicitas Easton M.D. Date: 0 09/15/2023 Generated for Printing/Faxing/eTransmitting on:?12/30/2024 08:12 AM EDT
--- OUTSIDE RECORDS SUMMARY | 2023-11-03 05:30 | XMS_ITS ---
Author Organization The [facility] in [place] Address [address] [place] [address] Care Team Providers Care Digital Measurement Advisor Name Role Phone Roman EVANGELISTA, Lucila Primary Care Provider Olivia vailable Nelida Easton Unavailable [phone] REASON FOR VISIT MD Encounters Encounter Location Date Provider Diagnosis [facility] Oncology [address] [place] [address] 11/03/2023 Nelida Easton Plan Of Treatment Next Appt Details Provider Name:Nelida Easton , 01/03/2025 09:30:00 AM, [address] [place] [address], [phone], Progress Notes * Kellee ALVAREZB:[birth year] (64 yo F)Acc No.[id number]:11/03/2023 UNLOCKED PROGRESS NOTE Progress Notes Patient: Orion Darline MUJICA :?Nelida Easton M.D.:1960???Age:63 Y ???Sex:FemaleDate:4Phone:[phone]:[address], [place]-[address]Pcp:Lucila Owens MD Subjective: * Chief Complaints: * 1 . MD. * Medical History: Objective: * Vitals: Assessment: Plan: * Treatment: * * Electronic signature of Nelida Easton MD, [id number] on 12/30/2024 at 08:08 AM EDTSign off status: PendingVisit Status:?VOICEMSG (Voice) * Provider: Felicitas Easton M.D. Date: 0 11/03/2023 Generated for Printing/Faxing/eTransmitting on:?12/30/2024 08:08 AM EDT
--- OUTSIDE RECORDS SUMMARY | 2024-05-17 06:00 | XMS_ITS ---
Author Organization The [facility] in [place] Address [address] [place] [address] Care Team Providers Care Retail Pos Specialist Name Role Phone Roman EVANGELISTA, Lucila Primary Care Provider Olivia vailable Nelida Easton Unavailable [phone] REASON FOR VISIT MD Encounters Encounter Location Date Provider Diagnosis [facility] [address] [place] [phone] 05/17/2024 Nelida Easton Plan Of Treatment Next Appt Details Provider Name:Nelida Easton , 01/03/2025 09:30:00 AM, [address] [place] [address], [phone], Progress Notes * Kellee ALVAREZB:[birth year] (64 yo F)Acc No.[id number]:05/17/2024 UNLOCKED PROGRESS NOTE Progress Notes Patient: Orion Darline MUJICA :?Nelida Easton M.D.:1960???Age:64 Y ???Sex:FemaleDate:05/17/2024Phone:[phone]:[address], [place]-[address]Pcp:Lucila Owens MD Subjective: * Chief Complaints: * 1 . MD. * Medical History: Objective: * Vitals: Assessment: Plan: * Treatment: * * Electronic signature of Nelida Easton MD, [id number] on 12/30/2024 at 08:11 AM EDTSign off status: PendingVisit Status:?ANSPH (Voice) * Provider: Felicitas Easton M.D. Date: 0 05/17/2024 Generated for Printing/Faxing/eTransmitting on:?12/30/2024 08:11 AM EDT
--- OUTSIDE RECORDS SUMMARY | 2024-11-22 06:00 | XMS_ITS ---
Author Organization The [facility] in [place] Address [address] [place] [address] Care Team Providers Care Timber Treatment Plant Operator Name Role Phone Roman EVANGELISTA, Lucila Primary Care Provider Olivia vailable Nelida Easton Unavailable [phone] REASON FOR VISIT MD Encounters Encounter Location Date Provider Diagnosis [facility] On[facility] [address] [place] [phone] 11/22/2024 Nelida Easton Plan Of Treatment Next Appt Details Provider Name:Nelida Easton , 01/03/2025 09:30:00 AM, [address] [place], [address], Progress Notes * Kellee ALVAREZB:[birth year] (64 yo F)Acc No.[id number]:11/22/2024 UNLOCKED PROGRESS NOTE Progress Notes Patient: Orion Darline MUJICA :?Nelida Easton M.D.:1960???Age:64 Y ???Sex:FemaleDate:11/22/2024Phone:[phone]:[address], [place]Pcp:Lucila Owens MD Subjective: * Chief Complaints: * 1 . MD. * Medical History: Objective: * Vitals: Assessment: Plan: * Treatment: * * Electronic signature of Nelida Easton MD, [id number] on 12/30/2024 at 08:10 AM EDTSign off status: PendingVisit Status:?CANC (Cancelled) * Provider: Felicitas Easton M.D. Date: 0 11/22/2024 Generated for Printing/Faxing/eTransmitting on:?12/30/2024 08:10 AM EDT
--- OUTSIDE RECORDS SUMMARY | 2024-12-20 04:30 | XMS_ITS ---
Author Organization The [facility] in [place] Address [address] [place] [address] Care Team Providers Care Meat Loiner Name Role Phone Roman EVANGELISTA, Lucila Primary Care Provider Olivia vailable Nelida Easton Unavailable [phone] REASON FOR VISIT MD Encounters Encounter Location Date Provider Diagnosis [facility] [address] [place] [address] 12/20/2024 Nelida Easton Plan Of Treatment Next Appt Details Provider Name:Nelida Easton , 01/03/2025 09:30:00 AM, [address] [place] [address], [phone], Progress Notes * Kellee ALVAREZB:[birth year] (64 yo F)Acc No.[id number]:12/20/2024 UNLOCKED PROGRESS NOTE Progress Notes Patient: Orion Darline MUJICA :?Nelida Easton M.D.:1960???Age:64 Y ???Sex:FemaleDate:12/20/2024Phone:[phone]:[address], [place]Pcp:Lucila Owens MD Subjective: * Chief Complaints: * 1 . MD. * Medical History: Objective: * Vitals: Assessment: Plan: * Treatment: * * Electronic signature of Nelida Easton MD, [id number] on 12/30/2024 at 08:09 AM EDTSign off status: PendingVisit Status:?CANC (Cancelled) * Provider: Felicitas Easton M.D. Date: Generated for Printing/Faxing/eTransmitting on:?12/30/2024 08:09 AM EDT
--- OUTSIDE RECORDS SUMMARY | 2024-12-28 09:00 | XMS_ITS | Encounter Summary ---
Author Organization [facility] Address [address] [place] [address] Care Team Providers Care Medical Device Sales Name Role Phone Unavailable Primary Care Provider Unavailabl e Reason for Visit * ReasonCommentsGynecologic Exam Encounter Details DateTypeDepartmentCare Team (Latest Contact Info)Gveeprmcdja13/22/2025 9:00 AM EDTProcedure Visit [facility] [address] [place] [phone] Tana Boyd PA [address] [place], [place] [id number] Well woman exam with routine gynecological exam; Encounter for screening mammogram for malignant neoplasm of breast; Postmenopausal state; Yeast infection; Vaginal itching; Vaginal burning; Vaginal irritation Social History Tobacco UseTypesPacks/DayYears UsedDateSmoking Tobacco: Never Assessed CommentsNoSex and Gender InformationValueDate RecordedSex Assigned at BirthNot on fileLegal XlyMpjquy47/15/2023 6:48 PM EDTGender IdentityNot on fileSexual OrientationNot on filedocumented as of this encounter Last Filed Vital Signs Vital SignReadingTime TakenCommentsBlood Vwrrkvhx669/8212/28/2024 9:28 AM EDT Pulse--Temperature--Respiratory Rate--Oxygen Saturation--Inhaled Oxygen Concentration--Xugtig818 kg (226 lb 6.4 oz)12/28/2024 9:28 AM MFRDupstt626.3 cm (5' 9 )12/28/2024 9:28 AM EDTBody Mass Index33.431 9:28 AM EDT documented in this encounter Progress Notes * FREEMAN Fernandez - 12/28/2024 9:00 AM EDT Reason for Appointment: Patient ID: Darline Browne is a 64 y.o. female who presents for Gynecologic Exam Patient presents today for Annual Exam. MEDICATIONS Current Outpatient Medications Medication Instructions ascorbic acid (Vitamin C) 500 mg/mL oral liquid 1 tablet, Oral, Daily RT B Complex Vitamins (VITAMIN B COMPLEX 100 IJ) Vitamin B Complex Cholecalciferol (D3 Adult) 25 MCG (1000 UT) chewable tablet D3 Adult fluconazole (DIFLUCAN) 150 mg, Oral, Once, This is a 1 time dose, take single tablet by mouth. Probiotic Product (PROBIOTIC DAILY PO) 1 tablet, Oral, Daily ALLERGIES No Known Allergies PROBLEMS Active Ambulatory Problems Diagnosis Date Noted No Active Ambulatory Problems Resolved Ambulatory Problems Diagnosis Date Noted No Resolved Ambulatory Problems Past Medical History: Diagnosis Date Lichen planus Ovarian cancer (HCC) HISTORY PAST MEDICAL HISTORY SOCIAL HISTORY Past Medical History: Diagnosis Date Lichen planus Ovarian cancer (HCC) Social History Tobacco Use Smoking status: Not on file Smokeless tobacco: Not on file Substance Use Topics Alcohol use: Not on file Drug use: Not on file FAMILY HISTORY No family history on file. SURGICAL HISTORY Past Surgical History: Procedure Laterality Date FOOT SURGERY Left 2022 HYSTERECTOMY 2021 TOTAL SHOULDER ARTHROPLASTY Left 2018 REVIEW OF SYSTEMS Review of Systems: Review of Systems Constitutional: Negative. HENT: Negative. Eyes: Negative. Respiratory: Negative. Cardiovascular: Negative. Gastrointestinal: Negative. Genitourinary: Negative. Musculoskeletal: Negative. Skin: Negative. Neurological: Negative. All other systems reviewed and are negative. Hematological: Negative. Endocrine: Negative. Allergic/Immunologic: Negative. OBJECTIVE Objective: Physical Exam Constitutional: Appearance: Normal appearance. She is well-developed. Genitourinary: Vulva normal. Cervix is absent. Uterus is absent. Breasts: Breasts are soft. Right: Normal. Left: Normal. Cardiovascular: Rate and Rhythm: Normal rate and regular rhythm. Pulmonary: Effort: Pulmonary effort is normal. Breath sounds: Normal breath sounds. Abdominal: General: Bowel sounds are normal. There is no distension. Palpations: Abdomen is soft. Tenderness: There is no abdominal tenderness. There is no guarding or rebound. Musculoskeletal: General: No swelling. Normal range of motion. Right lower leg: No edema. Left lower leg: No edema. Neurological: Mental Status: She is alert and oriented to person, place, and time. Skin: General: Skin is warm and dry. Psychiatric: Mood and Affect: Mood normal. Behavior: Behavior normal. Vitals and nursing note reviewed. Exam conducted with a critical care registered nurse present. Vitals: Estimated body mass index is 33.43 kg/m?? as calculated from the following: Height as of this encounter: 5' 9 . Weight as of this encounter: 226 lb 6.4 oz. BP: 122/82 No LMP recorded. Patient has had a hysterectomy. ASSESSMENT & PLAN ICD-10-CM 1. Well woman exam with routine gynecological exam Z01.419 THIN PREP TIS PAP AND HR HPV DNA 2. Encounter for screening mammogram for malignant neoplasm of breast Z12.31 Bilateral screening mammogram Bilateral screening mammogram 3. Postmenopausal state Z78.0 DEXA bone density DEXA bone density 4. Yeast infection B37.9 fluconazole (Diflucan) 150 MG tablet DISCONTINUED: fluconazole (Diflucan) 150 MG tablet DISCONTINUED: fluconazole (Diflucan) 150 MG tablet 5. Vaginal itching N89.8 SURESWAB(R) ADVANCED VAGINITIS PLUS, TMA CHLAMYDIA TRACHOMATIS (GENITO/STI) Neisseria gonorrhea DNA probe, direct DISCONTINUED: fluconazole (Diflucan) 150 MG tablet DISCONTINUED: fluconazole (Diflucan) 150 MG tablet 6. Vaginal burning N94.89 SURESWAB(R) ADVANCED VAGINITIS PLUS, TMA CHLAMYDIA TRACHOMATIS (GENITO/STI) Neisseria gonorrhea DNA probe, direct DISCONTINUED: fluconazole (Diflucan) 150 MG tablet DISCONTINUED: fluconazole (Diflucan) 150 MG tablet 7. Vaginal irritation N89.8 SURESWAB(R) ADVANCED VAGINITIS PLUS, TMA CHLAMYDIA TRACHOMATIS (GENITO/STI) Neisseria gonorrhea DNA probe, direct DISCONTINUED: fluconazole (Diflucan) 150 MG tablet DISCONTINUED: fluconazole (Diflucan) 150 MG tablet Orders Placed This Encounter Procedures Bilateral screening mammogram DEXA bone density CHLAMYDIA TRACHOMATIS (GENITO/STI) Neisseria gonorrhea DNA probe, direct Annual Wellness Exam: Patient presents today for routine annual exam. Patient states she has complaints of burning with urination post history of ovarian cancer. Patients vitals were reviewed and within normal limits. Growth and development is noted to be appropriate for age. No mental health concerns was expressed. Pap Smear: Speculum was inserted into the vagina and pap was obtained without difficulty. HPV testing was performed per age guideline. Patient was advised that pap results could take anywhere from 7 to 10 days to receive and our office will reach out to the patient with those once we have them. Patient can also view results via [employer]. I reinforced importance of condom use for STI prevention. Patient requested cultures to be performed with today's visit. Breast Exam: Upon examination, clinical breast exam was noted to be normal and screening mammogram was ordered and given to patient to have obtained. Patient was counseled on breast self-awareness, including the importance of knowing what is normal for her own breasts and promptly reporting any changes such as new lumps, skin dimpling, nipple discharge, or pain. Screening mammogram was recommended annually. Discussed signs and symptoms of breast cancer and when to seek medical attention. Answered all patient questions. DEXA Counseling: DEXA scan ordered and given to the patient to have performed for osteoporosis screening per guidelines. Patient counseled on bone health, including the importance of calcium and vitamin D intake, weight-bearing exercise, fall prevention, and avoiding tobacco and excessive alcohol. Discussed purposeof DEXA in assessing fracture risk and monitoring bone density. Patient advised results will be reviewed upon completion and next steps discussed as needed. Patient vaginal area is pink and appears thin. We ordered cultures to rule out yeast causing pain. We discussed use of clobetsole cream 2 times a week and also incorporating coconut oil. Pt to see Rustam next week and will discuss use of creams as she believed it could cause issue due to ovarian cancer. We did prescribe diflucan, she was unable to provide UA today and states will get with Rustam visit or stop back here in future. Follow Up: Patient is to return to our office in one year for annual exam unless needed otherwise. Documented by FREEMAN Fernandez on behalf of: FREEMAN Fernandez documented in this encounter Plan of Treatment DateTypeDepartmentCare Team (Latest Contact Info)Giyuxvbchfr37/06/2025 9:30 AM ESTOffice Visit [facility] [address] [place] [phone] Nelia Sal MD [address] [place] [address] NameTypePriorityAssociated DiagnosesOrder ScheduleBilateral screening mammogram ImagingRoutine Encounter for screening mammogram for malignant neoplasm of breast Expected: 12/28/2024, Expires: 02/27/2026DEXA bone densityImagingRoutine Postmenopausal state Expected: 12/28/2024 (Approximate), Expires: 12/28/2025THIN PREP TIS PAP AND HR HPV DNAPathology and CytologyRoutine Well woman exam with routine gynecological exam Ordered: 12/28/2024SURESWAB(R) ADVANCED VAGINITIS PLUS, TMAPathology and CytologyRoutine Vaginal itching Vaginal burning Vaginal irritation Ordered: 12/28/2024HLAMYDIA TRACHOMATIS (GENITO/STI)LabRoutine Vaginal itching Vaginal burning Vaginal irritation Ordered: 12/28/2024Neisseria gonorrhea DNA probe, directLabRoutine Vaginal itching Vaginal burning Vaginal irritation Ordered: 12/28/2024documented as of this encounter Visit Diagnoses Diagnosis Well woman exam with routine gynecological exam Routine gynecological examination Encounter for screening mammogram for malignant neoplasm of breast Postmenopausal state Asymptomatic postmenopausal status (age-related) (natural) Yeast infection Vaginal itching Pruritus of genital organs Vaginal burning Other specified symptom associated with female genital organs Vaginal irritation Pruritus of genital organs documented in this encounter
--- OUTSIDE RECORDS SUMMARY | 2024-12-30 08:06 | XMS_ITS | Clinical Summary ---
Author Organization [facility] Address [address], [address] [place] [address] Care Team Providers Care Domestic Travel Consultant Name Role Phone Lucila Owens MD Primary Care Provider [phone] Allergies No known active allergies Medications MedicationSigDispense QuantityRefillsLast FilledStart DateEnd DateStatus Ascorbic Acid (VITAMIN C) 250 MG tablet Take 250 mg by mouth dailyActive Cholecalciferol (VITAMIN D3) 2000 units CAPS Take by mouthActive b complex vitamins capsule Take 1 capsule by mouth dailyActive aspirin 81 MG EC tablet Take 81 mg by mouth Pt takes an iron every other dayActive ferrous sulfate (FE TABS 325) 325 (65 Fe) MG EC tablet Take 325 mg by mouth three times a weekActive clobetasol (TEMOVATE) 0.05 % cream Indications:Lichen sclerosusApply topically 2 times daily as needed for vulvar irritation not to exceed 6 weeks of continuous usage 1 each ctive levothyroxine (SYNTHROID) 25 MCG tablet Take 25 mcg by mouth DailyActive Alcohol Swabs (ALCOHOL PREP) PADS 30 Units by Does not apply route daily for 21 days 30 each 08/13/2021ctive DULoxetine (CYMBALTA) 30 MG extended release capsule Indications:Endometrioid adenocarcinoma of ovary, unspecified laterality (HCC) Take 1 capsule by mouth daily 90 capsule ctive Additional Information Patient not taking.Reported on 09/25/2021 dexamethasone (DECADRON) 4 MG tablet Take 5 tablets by mouth the evening before and again the morning of chemotherapy 30 tablet 107ctive Additional Information Patient not taking.Reported on 01/15/2022 ondansetron (ZOFRAN ODT) 8 MG TBDP disintegrating tablet Take 1 tablet by mouth every 8 hours as needed for Nausea 30 tablet ctive lidocaine-prilocaine (EMLA) 2.5-2.5 % cream Apply topically to port site 30 minutes before access as needed. 30 g ctive Additional Information Patient not taking.Reported on 01/15/2022 Probiotic Product (PROBIOTIC DAILY PO) Take 1 tablet by mouth dailyActive Active Problems ProblemNoted DateDiagnosed DateEncounter for care related to vascular access port09/24/2021varian cancer, iqetjdxwd40/30/2022elvic mass in etphmg0708/12/2021 RALH, BSO, Lymph Node (B/L pelvic and Paraortic), Omentectomy, Pelvic Washings 08/12/2205Lichen pnwwth2006/26/2021cquired hypothyroidismPelvic pain in femaleElevated CA-125Urinary frequencyDiarrheaFatigue Resolved Problems ProblemNoted DateDiagnosed DateResolved DatePost-operative state08/12/2021 09/11/2021 Immunizations ImmunizationAdministration DatesNext DueHep A, HAVRIX, VAQTA, (age 12m-18y), IM, 0.5mL01/24/2005Hep A, HAVRIX, VAQTA, (age 19y+), IM, 1mL04/14/2013Hep B, ENGERIX-B, RECOMBIVAX-HB, (age - 19y), IM, 0.5mL06/16/2013,04/14/2013 Hepatitis A004/14/2013Hepatitis B006/16/2013,04/14/2013Influenza Vaccine, unspecified yskhrkioqer74/15/2016Influenza Virus Oyhkjhn9911/22/2015TDaP, ADACEL (age 10y-64y), BOOSTRIX (age 10y+), IM, 0.5mL10/12/2017,10/12/2017,04/14/2013, 04/14/2013Typhoid Vi capsular polysaccharide (Typhim )04/14/2013,04/14/2013 Yellow Fever (YF-Vax)04/07/2013,04/07/2013 Family History Medical HistoryRelationNameCommentsCancerFatherMYELODYSPLASIC SYNDROMEHeart DiseaseMaternal GrandfatherHigh Blood PressureMaternal GrandfatherBreast Cancer MotherRelationNameStatusCommentsFatherAliveMaternal GrandfatherMotherDeceased Social History Tobacco UseTypesPacks/DayYears UsedDateSmoking Tobacco: UbbbknOpjgjzhdit3704311 - 2011Smokeless Tobacco: Never Tobacco Cessation:Counseling Given: Not Answered Alcohol UseStandard Drinks/WeekCommentsYes0 (1 standard drink = 0.6 oz pure alcohol)every couple monthsOverall Financial Resource Strain (CARDIA)AnswerDate RecordedHow hard is it for you to pay for the very basics like food, housing, medical care, and heating?Not hard at all05/07/2021HQ-2AnswerDate RecordedPHQ-9 Total Quabl000Hunger Vital SignAnswerDate RecordedWithin the past 12 months, you worried that your food would run out before you got the money to buy more.Never true05/07/2021Within the past 12 months, the food you bought just didn't last and you didn't have money to get more.Never true05/07/2021 CommentsNoSex and Gender InformationValueDate RecordedSex Assigned at BirthNot on fileLegal IpbFsgacm82/12/2013 4:23 AM ESTGender IdentityNot on fileSexual OrientationNot on file Last Filed Vital Signs Vital SignReadingTime TakenCommentsBlood Uerbcfmd391/8401/15/2022 11:33 AM EST Tbqrf566601/15/2022 11:22 AM TSHBdczaricllg41.5 ??C (97.7 ??F)01/06/2022 4:24 PM EDTRespiratory Mcbt8482 4:24 PM EDTOxygen Cltntpblaj656%01/15/2022 11:22 AM ESTInhaled Oxygen Concentration--Kzllna249.8 kg (222 lb 3.2 oz)01/15/2022 11:22 AM NJYBuakkz702.3 cm (5' 9 )01/15/2022 11:22 AM ESTBody Mass Index32.81 01/15/2022 11:22 AM EST Plan of Treatment Health MaintenanceDue DateLast DoneCommentsDepression Tqjhfc6101/08/1972FIT/FOBT: Average risk01/07/2005Fecal-DNA (Cologuard): Average risk01/07/2005 Sigmoidoscopy/CT bcjywpucvgtg47/01/2005Pneumococcal 50+ years Vaccine (1 of 1 - PCV)01/07/2010Shingles vaccine (1 of 2)01/07/2010Hepatitis B vaccine (3 of 3 - 19+ 3-dose series), 06/16/2013, 04/14/2013, Additional history czicupYnorihacnnu22/01/202103/03/2015Colorectal Cancer Kpcqzo5105/07/2020 Flu vaccine (#1), 11/22/2015COVID-19 Vaccine ( - season)2024reast cancer mcnckc38601/, 03/06/2023, 03/05/2022, Additional history atsyagKpcdqj79/31/202705/, 11/24/2017, 06/12/2015DTaP/Tdap/Td vaccine (5 - Td or Tdap), 10/12/2017, 04/14/2013, Additional history existsRespiratory Syncytial Virus (RSV) or age 60 yrs+ (1 - 1-dose 75+ series)01/07/2035Hepatitis A vaccineAged Out 04/14/2013, 04/14/2013, 01/24/2005No longer eligible based on patient's age to complete this topicCervical cancer screenDiscontinuedHPV (without or with Pap) Xirjnsudzmug34/20/2022Pap jqyxuSadiwoqcttec97/20/2022Diabetes screenDiscontinued 08/06/2021HIV screenDiscontinuedHepatitis C screenDiscontinuedHib vaccineAged OutNo longer eligible based on patient's age to complete this topicMeningococcal (ACWY) vaccineAged OutNo longer eligible based on patient's age to complete this topicMeningococcal B vaccineAged OutNo longer eligible based on patient's age to complete this topicPolio vaccineAged OutNo longer eligible based on patient's age to complete this topic Medical Devices ImplantedTypeAreaManufacturerDevice IdentifierShelf Expiration DateModel / Serial / LotPort-09/25/2021 Implanted:09/25/2021 by Sonu Mclaughlin MD (Quantity not on file)PortRight: Chest Wall07/06/2022/ [id number] / [id number]:Bard power port Procedures Procedure NamePriorityDate/TimeAssociated DiagnosisCommentsMAM KETAN DIGITAL SCREEN ICEVHBZGRQginamf84/22/2025 9:34 AM EST Encounter for screening mammogram for malignant neoplasm of breast HEMOGLOBIN I9SQfnjofm36/31/2022 9:32 AM EDT Pre-op evaluation Pelvic mass Obesity, Class I, BMI 30-34.9 LIPID NEONEQvpxzgx72/31/2022 9:32 AM EDT Pre-op evaluation Pelvic mass Obesity, Class I, BMI 30-34.9 HUMAN PAPILLOMAVIRUS (HPV) DNA PROBE THIN PREP HIGH VVXKPwixclk35/20/2022 8:05 AM EDT HR DIRECTOR ABGGQKXTPgfikzy47/20/2022 8:05 AM EDT COLONOSCOPY W/ OR W/O GPRDCQEhtfxax38/01/2016from Last 3 Months or Most Recently Relevant to Health Maintenance Results * DENI KETAN DIGITAL SCREEN BILATERAL (03/30/2024 9:34 AM EST)Anatomical Region LateralityModalityBreastBilateralMammographySpecimen (Source)Anatomical Location / LateralityCollection Method / VolumeCollection TimeReceived Time 03/30/2024 9:34 AM EST Impressions 04/05/2024 1:04 PM EST OVERALL ASSESSMENT: BIRADS: 1 Negative, no evidence of malignancy. A letter of notification will be mailed to the patient. Performing Facility: [place] [address] Narrative 04/05/2024 1:04 PM EST HISTORY: Screening. TECHNIQUE: Bilateral digital screening mammogram with CAD. Digital breast tomosynthesis imaging. FINDINGS: Two views of each breast were obtained. There are scattered areas of fibroglandular density. BREAST DENSITY CODE: S: Scattered No change from prior studies, most recent of 03/06/2023. Suspicious calcifications: None. Suspicious mass: None. (If skin markers were applied, circles represent skin lesions and linear markers represent scars.) Authorizing ProviderResult TypeResult StatusCorey Maynor Oneill MDIMCristi MAMMOGRAPHY ORDERABLESFinal Result * Hemoglobin A1C (08/06/2021 9:32 AM EDT)ComponentValueRef RangeTest Method Analysis TimePerformed AtPathologist SignatureHemoglobin A1C5.34.0 - 6.0 % 08/06/2021 9:32 AM EDTMERCY LABORATORIESEstimated Avg Igmidyt720le/dL 08/06/2021 9:32 AM EDTMERCY LABORATORIESComment: The ADA and AACC recommend providing the estimated average glucose result to permit better patient understanding of their HBA1c result. Specimen (Source)Anatomical Location / LateralityCollection Method / Volume Collection TimeReceived TimeBLOOD SPECIMEN / Umoqnbr0008/06/2021 9:32 AM EDT 08/06/2021 9:37 AM EDT Narrative Authorizing ProviderResult TypeResult StatusAlicibarbara Talbot CAREERS COUNSELLOR - CNPCHEMISTRY ORDERABLESFinal ResultPerforming OrganizationAddressCity/State/ZIP CodePhone Number [place] [phone] [place] [address], [facility] [phone] * (ABNORMAL) Lipid Panel (08/06/2021 9:32 AM EDT)ComponentValueRef RangeTest MethodAnalysis TimePerformed AtPathologist KlvrwooomClyrckijmms616(H)<200 mg/dL08/06/2021 9:32 AM EDTMERCY LABORATORIESComment: Cholesterol Guidelines: <200 Desirable 200-240 ??Borderline >240 Undesirable HDL64>40 mg/dL08/06/2021 9:32 AM EDTMERCY LABORATORIESComment: HDL Guidelines: <40 Undesirable 40-59 ?Borderline >59 Desirable LDL Eicvsnniigs6451 - 130 mg/dL08/06/2021 9:32 AM EDTMERCY LABORATORIESComment: LDL Guidelines: <100 Desirable 100-129 ?? Near to/above Desirable 130-159 ?? Borderline >159 Undesirable Direct (measured) LDL and calculated LDL are not interchangeable tests. Chol/HDL Ratio3.3<505 9:32 AM EDTMERCY LABORATORIESComment:Triglycerides 76<150 mg/dL08/06/2021 9:32 AM EDTMERCY LABORATORIESComment: Triglyceride Guidelines: <150 Desirable 150-199 ??Borderline 200-499 ??High >499 Very high Based on AHA Guidelines for fasting triglyceride, December 2011. Specimen (Source)Anatomical Location / LateralityCollection Method / Volume Collection TimeReceived TimeBLOOD SPECIMEN / Jbpmwwl8908/06/2021 9:32 AM EDT 08/06/2021 9:37 AM EDT Narrative Authorizing ProviderResult TypeResult StatusAlicia Antione CAREERS COUNSELLOR - CNPCHEMISTRY ORDERABLESFinal ResultPerforming OrganizationAddressCity/State/ZIP CodePhone Number [facility] [address] [place] [address], [facility] [phone] * Human papillomavirus (HPV) DNA probe thin prep high risk (06/26/2021 8:05 AM EDT)ComponentValueRef RangeTest MethodAnalysis TimePerformed AtPathologist SignatureSpecimen Description.GENITAL - NOT ZZIDSREJE06/20/2022 8:05 AM EDT LookerHPV Sample.THIN PREP06/26/2021 8:05 AM EDContacts+ HPV, Genotype 16Not DetectedNot Xucstfln92/20/2022 8:05 AM EDContacts+HPV, Genotype 18Not DetectedNot Efzdcjvh52/20/2022 8:05 AM EDT LookerHPV, High Risk OtherNot DetectedNot Achclggf92/20/2022 8:05 AM EDContacts+HPV, Zumahebkqbymch03/20/2022 8:05 AM EDTransposagen Biopharmaceuticals LABORATORIESComment: This test amplifies and detects DNA of 14 high-risk HPV types associated with cervical cancer and its precursor lesions (HPV types 16,18, 31, 33, 35, 39, 45, 51, 52, 56, 58, 59, 66, and 68). ? Sensitivity may be affected by specimen collection methods, stage of infection, and the presence of interfering substances. Results should be interpreted in conjunction with other available laboratory and clinical data. A negative high-risk HPV result does not exclude the possibility of future cytologic HSIL or underlying CIN2-3 or cancer. ? This test is intended for medical purposes only and is not valid for the evaluation of suspected sexual abuse or for other forensic purposes. Specimen (Source)Anatomical Location / LateralityCollection Method / Volume Collection TimeReceived TimeSPECIMEN FROM GENITAL SYSTEM / Kvyrjev9606/26/2021 8:05 AM EDT Narrative Authorizing ProviderResult TypeResult StatusKathlradha Guy CAREERS COUNSELLOR - CNMHEMATOLOGY ORDERABLESFinal ResultPerforming OrganizationAddressCity/State/ZIP CodePhone Number [facility] [address] [place] [address], [facility] [phone] [facility] [address] [place], [place] [id number], [facility] [phone] * HR DIRECTOR Cytology (06/26/2021 8:05 AM EDT)ComponentValueRef RangeTest Method Analysis TimePerformed AtPathologist SignatureCytology ReportINTERPRETATION Cervical material, (ThinPrep vial, Imaging-assisted review): Specimen Adequacy: ? Satisfactory for evaluation. ? - Endocervical/transformation zone component present. Descriptive Diagnosis: ? Negative for intraepithelial lesion or malignancy. ?? Senior Payroll Manager: ?? PAULA LOCO(ASCP) Electronically Signed Out 07/04/2021 Procedure/Addendum HPV Procedure Report ? Date Ordered: ? 06/27/2021 ? Status: Signed Out ? Date Complete: ? 06/28/2021 ? By: System Interface ? Date Reported: ? 06/28/2021 ? Sample: ??HPV Type 16 ?Result: ?? Not Detected ?Ref Range: (Not Detected) Sample: ??HPV Type 18 ?Result: ?? Not Detected ?Ref Range: (Not Detected) Sample: ??Other High Risk HPV ?Result: ?? Not Detected ?Ref Range: (Not Detected) Sample: ??HPV Interp ?Result: ? Ref Range: (Not Detected) This test amplifies and detects DNA of 14 high-risk HPV types associated with cervical cancer and its precursor lesions (HPV types 16,18, 31, 33, 35, 39, 45, 51, 52, 56, 58, 59, 66, and 68). ? Sensitivity may be affected by specimen collection methods, stage of infection, and the presence of interfering substances. Results should be interpreted in conjunction with other available laboratory and clinical data. A negative high-risk HPV result does not exclude the possibility of future cytologic HSIL or underlying CIN2-3 or cancer. ? This test is intended for medical purposes only and is not valid for the evaluation of suspected sexual abuse or for other forensic purposes. ?? Source: A: Cervical material, (ThinPrep vial, Imaging-assisted review) Clinical History Postmenopausal Z01.419 Routine curriculum and instruction director exam without abnormal findings Z11.51 Encounter for screening for HPV Co-Test: ??ThinPrep Pap with high risk HPV testing GYNECOLOGIC CYTOLOGY REPORT Patient Name: DARLINE ALVAREZ [facility] Rec: [id number] Path Number: [id number] [facility] ??[facility]ATOR[facility] CONSULTING PATHOLOGISTS [facility] [place] ANATOMIC PATHOLOGY [address] [place] [address]. ??[place], [place] [phone] [facility] LABORATORIESSpecimen (Source)Anatomical Location / LateralityCollection Method / VolumeCollection TimeReceived TimeCERVICAL SIZXSBVO67/20/2022 8:05 AM EDT06/27/2021 8:05 AM EDT Narrative Authorizing ProviderResult TypeResult StatuslEo Guy APRN - CNM PATHOLOGY/CYTOLOGY ORDERABLESFinal ResultPerforming OrganizationAddress City/State/ZIP CodePhone Number [facility] [address] [place] [address], [facility] [phone] [phone] * COLONOSCOPY W/ OR W/O BIOPSY (05/08/2015) Narrative Authorizing ProviderResult TypeResult StatusMartín Bush MDGENERAL SURGICAL ORDERABLESFinal Result from Last 3 Months or Most Recently Relevant to Health Maintenance Insurance Advance Directives TypeDate RecordedPatient RepresentativeExplanationACP-Advance Directive08/12/2021 12:24 PMACP-Advance Directive * Full Code (Latest Code Status on File) Date ActivatedDate InactivatedComments08/12/2021 8:48 PM08/13/2021 3:45 PM * Full Code Date ActivatedDate InactivatedComments08/12/2021 10:19 AM08/12/2021 8:48 PM Care Teams Team MemberRelationshipSpecialtyStart DateEnd Date Lucila Owens MD PCP - GeneralFamily Wcxulczc01/28/21
--- OUTSIDE RECORDS SUMMARY | 2024-12-30 08:06 | XMS_ITS | Clinical Summary ---
Author Organization [facility] Address [address] [place] [address] Care Team Providers Care Study Manager Name Role Phone Lucila Owens MD Primary Care Provider + Will Espinal MD Unavailable Allergies No known active allergies Medications MedicationSigDispense QuantityRefillsLast FilledStart DateEnd DateStatus Levothyroxine 75 mcg cap Take 75 mcg by mouth.Active VIT B CPLX C NO.13/FOLIC AC/D3 (VIT B COMPLEX WITH C #13-FA-D3 ORAL) Take by mouth.Active ferrous sulfate (IRON ORAL) Take by mouth once daily.Active ascorbic acid (VITAMIN C ORAL) Take 1 tablet by mouth once daily.Active ergocalciferol, vitamin D2, (VITAMIN D2 ORAL) Take by mouth.Active cholecalciferol, vitamin D3, (VITAMIN D3 ORAL) Take 1 tablet by mouth once daily.Active VITAMIN E ORAL Take 1 tablet by mouth once daily.Active Active Problems ProblemNoted DateDiagnosed DateLeg efrmvqyi40/27/2023History of ovarian cancer 10/02/20223449Grnvxgypyu64/27/2023Ovarian cancer, eijtmmimh95/14/2022Morton neuroma 04/21/2016DJD (degenerative joint disease), ankle and foot04/21/2016Cavus twcqihmzw70/13/2017Neuritis of foot04/21/2016 Family History Medical HistoryRelationCommentsCancerFatherBreast CancerMotherRelationStatus CommentsFatherAliveMotherDeceased Social History Tobacco UseTypesPacks/DayYears UsedDateSmoking Tobacco: FormerCigarettesQuit: 03/09/2011Passive Smoke Exposure: PastSmokeless Tobacco: Never Tobacco Cessation:Counseling Given: Not Answered Alcohol UseStandard Drinks/WeekCommentsYes0 (1 standard drink = 0.6 oz pure alcohol)sociallyArea Deprivation IndexAnswerDate RecordedNational Score (1-100), lower number is lower ypoa995509/17/2022State Score (1-10), lower number is lower riskNot on file3Data from: https://www.neighborhoodatlas.[facility]/. Last address used for [address]3CommentsNoSex and Gender InformationValueDate RecordedSex Assigned at WjasrWfmdfo94/22/2022 10:10 AM EST Legal ObnDwyvbz58/22/2016 10:13 AM ESTGender IdentityNot on fileSexual SiubgqkybgmTiwicgvi01/22/2022 10:10 AM EST Last Filed Vital Signs Vital SignReadingTime TakenCommentsBlood Lepncbqn451/7107 10:52 AM EDT Otqdg370609/17/2022 10:52 AM UDEMdnyoyeeeey04.2 ??C (97.1 ??F)09/17/2022 10:52 AM EDTRespiratory Vhmn519709/17/2022 10:52 AM EDTOxygen Dwtvtpwpal71%09/17/2022 10:52 AM EDTInhaled Oxygen Concentration--Eenjpw451.2 kg (234 lb 3.2 oz)09/17/2022 10:52 AM MDCUojvec137.3 cm (5' 9.02 )09/17/2022 10:52 AM EDTBody Mass Index34.57 09/17/2022 10:52 AM EDT Plan of Treatment Health MaintenanceDue DateLast DoneCommentsAnxiety Pdxjlkuea00/01/1978Depression Iuxfzkuvz57/01/1978HIV Rjivnwnde60/01/1978Hepatitis C Hmdusrtay13/01/1978CT Jrpcugfwvjxi74/01/2005Cologuard (FIT-DNA)01/07/20051423Zwnbhpjuxot61/01/2005 Colorectal Cancer Buqklqrtn47/01/2005Fecal Occult Blood01/07/2005Sigmoidoscopy 01/07/2005Pneumococcal Vaccine: 50+ (1 of 1 - PCV)01/07/2010Shingrix Vaccine (1 of 2)01/07/2010Cervical Cancer Iikskrgot23, 04/07/2019 Mammogram Bqpleqxbn66, 02/21/2019Covid-19 Vaccine (1 - 2024- season)2024Influenza Vaccine (#1)/Diabetes Screening /, 12/05/2021, 11/14/2021, Additional history existsLipid Tkdrwnofs37/, 11/24/2017DTaP,Tdap,Td Vaccine (3 - Td or Tdap) , 04/14/2013RSV Vaccine (1 - 1-dose 75+ series)01/07/2035 Procedures Procedure NamePriorityDate/TimeAssociated DiagnosisCommentsPAP FLUID CERVICAL WJJRJNWGOWyfjsig97/30/2020 11:40 AM EST from Last 3 Months or Most Recently Relevant to Health Maintenance Results * PAP FLUID CERVICAL SCREENING (04/07/2019 11:40 AM EST)ComponentValueRef Range Test MethodAnalysis TimePerformed AtPathologist SignatureTranscription ADDITIONAL PROCEDURES PRESENT Specimen originated from [facility] Specimen #: [id number] Submitting Physician: JERRY LION M.D. ??(M66) SPECIMEN SUBMITTED A: CERVICAL, SCREENING, FLUID FINAL DIAGNOSIS A. CERVICAL, SCREENING, FLUID Satisfactory for interpretation. Negative for intraepithelial lesion or malignancy. Acute inflammation. This specimen has been analyzed by the ThinPrep Imaging System, an automated imaging and review system, which assists the laboratory in evaluating cells on ThinPrep Pap tests. ??Following automated imaging, selected barrera from every slide are reviewed by a reimbursement liaison. BERONICA Peterson(ASCP) ? (Electronic Signature) ADDITIONAL PROCEDURE(S) HUMAN PAPILLOMA VIRUS ? Date Ordered: ??04/08/2019 ? Date Reported: ??04/11/2019 Procedure Results and Interpretation Negative for HPV DNA high risk type 16 by PCR. Negative for HPV DNA high risk type 18 by PCR. Negative for HPV DNA high risk types: 31,33,35,39,45,51,52,56,58,59,66,68 by PCR. This test was developed and its performance characteristics determined by [facility]'s [facility] [place] ([facility]). It has not been cleared or approved by the FDA. [facility] is regulated under CLIA as qualified to perform high-complexity testing. This test is used for clinical purposes. It should not be regarded as investigational or for research. CLINICAL DATA ROUTINE EXAM, HPV Testing: Yes, automatic HPV patients over 30 Date of Last Menstrual Period: Postmenopausal STAINS A: ??CERVICAL, SCREENING, FLUID ? THIN PREP SALES ADMINISTRATOR Evangelista oGnzalez M.D., Excavator Backhoe Operator Date of Report: 04/12/2019 Date of Procedure: 04/07/2019 Date of Receipt: 04/08/2019 Submitted by: JERRY LION M.D. ??(M66) Location: [facility] Diagnostic interpretation performed at [facility], [address] [place] [address]. ?? CLIA Number: [id number] ? The Pap Smear is a screening test for cervical cancer. False negative results occur with all screening tests, emphasizing the need for rescreening at recommended intervals, and clinical correlation.[facility] Specimen (Source)Anatomical Location / LateralityCollection Method / Volume Collection TimeReceived TimeSpecimen from uterine cervix (specimen)CERVICAL / Wbylolj1304/07/2019 11:40 AM EST04/08/2019 12:54 PM EST Narrative Authorizing ProviderResult TypeResult StatusJerry Lion DOCYTOLOGYEdited Result - FinalPerforming OrganizationAddressCity/State/ZIP CodePhone Number [facility] [address] [place] [address] from Last 3 Months or Most Recently Relevant to Health Maintenance Insurance Care Teams Team MemberRelationshipSpecialtyStart DateEnd Date Lucila Owens MD [address] [address] PCP - GeneralFamily Jownagsg40/5/22 Will Espinal MD [address] [place] [address] Rbehtvpltu57/5/22
--- OUTSIDE RECORDS SUMMARY | 2024-12-30 08:07 | XMS_ITS | Clinical Summary ---
Author Organization [facility] Healthcare Address [address] [place] [address] Care Team Providers Care Christmas Bell Ringer Name Role Phone Unavailable Primary Care Provider Unavailabl e Allergies No known active allergies Medications MedicationSigDispense QuantityRefillsLast FilledStart DateEnd DateStatus ascorbic acid (Vitamin C) 500 mg/mL oral liquid Take 1 tablet by mouth in the morning.Active B Complex Vitamins (VITAMIN B COMPLEX 100 IJ) Vitamin B ComplexActive Cholecalciferol (D3 Adult) 25 MCG (1000 UT) chewable tablet D3 AdultActive Probiotic Product (PROBIOTIC DAILY PO) Take 1 tablet by mouth DailyActive metroNIDAZOLE (Flagyl) 500 MG tablet Indications:BV (bacterial vaginosis)Take 1 tablet (500 mg) by mouth in the morning and 1 tablet (500 mg) before bedtime. Do all this for 7 days. Do not drink alcohol while taking this medication. 14 tablet /tive fluconazole (Diflucan) 150 MG tablet Indications:Yeast infection,Vaginal itching,Vaginal burning,Vaginal irritation Take 1 tablet (150 mg) by mouth 1 (one) time for 1 dose This is a 1 time dose, take single tablet by mouth. 2 tablet Discontinued fluconazole (Diflucan) 150 MG tablet Indications:Yeast infection,Vaginal itching,Vaginal burning,Vaginal irritation Take 1 tablet (150 mg) by mouth 1 (one) time for 1 dose This is a 1 time dose, take single tablet by mouth. 2 tablet /Discontinued fluconazole (Diflucan) 150 MG tablet Indications:Yeast infectionTake 1 tablet (150 mg) by mouth 1 (one) time for 1 dose This is a 1 time dose, take single tablet by mouth. 1 tablet Expired Encounters DateTypeDepartmentCare BzkkQxxzgwggbcq45/23/2025bstract [facility] Jennifer OBGYAnnabelle [address] [address] Nadia Marie [place] 12/29/2024Telephone [facility] Jennifer OBGYAnnabelle [address] [place] [address] Nadia Marie [place] 12/28/2024 9:00 AM EDTProcedure Visit [facility] Jennifer MONTIEL [address] [place] [address] Tana Boyd PA Well woman exam with routine gynecological exam; Encounter for screening mammogram for malignant neoplasm of breast; Postmenopausal state; Yeast infection; Vaginal itching; Vaginal burning; Vaginal jnlgnxnkyj17/22/2025External Result Encounter [facility] External Department Unsolicited Tana Boyd PA 12/28/2024amboo flowsheet [facility] Jennfier OBGYAnnabelle [address] [address] Tana Boyd PA 11/14/2024Telephone [facility] Jennifer [facility] [address] [address] Gracie Dodd LPN from Last 3 Months Social History Tobacco UseTypesPacks/DayYears UsedDateSmoking Tobacco: Never Assessed CommentsNoSex and Gender InformationValueDate RecordedSex Assigned at BirthNot on fileLegal ZjeRurvlz06/15/2023 6:48 PM EDTGender IdentityNot on fileSexual OrientationNot on file Last Filed Vital Signs Vital SignReadingTime TakenCommentsBlood Fmrkwmxa713/8212/28/2024 9:28 AM EDT Pulse--Temperature--Respiratory Rate--Oxygen Saturation--Inhaled Oxygen Concentration--Yqunym712 kg (226 lb 6.4 oz)12/28/2024 9:28 AM YNMUroewk462.3 cm (5' 9 )12/28/2024 9:28 AM EDTBody Mass Index33.431 9:28 AM EDT Plan of Treatment DateTypeDepartmentCare Team (Latest Contact Info)Zpxogvodsqd40/06/2025 9:30 AM ESTOffice Visit [facility] [address] [place] [phone] Nelia Sal MD [address] [place] [address] Procedures Procedure NamePriorityDate/TimeAssociated DiagnosisCommentsRECURRENT VAGINITIS (HTRX)Yyggwui5212/28/2024 11:51 AM EDT from Last 3 Months Results * (ABNORMAL) RECURRENT VAGINITIS (HTRX) (12/28/2024 11:51 AM EDT)ComponentValue Ref RangeTest MethodAnalysis TimePerformed AtPathologist SignatureATOPOBIUM RUOPFDZ04.675(A)19.961 - 24.689 ppm12/29/2024 6:35 AM EDTHealthTrackRx at formerly [facility] HospitalATOPOBIUM VAGINAEDetected(A)19.961 - 24.689 ppm12/29/2024 6:35 AM EDT [facility] HospitalBVAB 2,3 (BACTERIAL VAGINOSIS ASSOCIATED BACTERIA 2, 3); MOBILUNCUS NGG934.961 - 24.689 ppm12/29/2024 6:35 AM EDTHealthTrackRx at [facility]AB 2,3 (BACTERIAL VAGINOSIS ASSOCIATED BACTERIA 2, 3); MOBILUNCUS SPP Not Hfcwbnfw25.961 - 24.689 ppm12/29/2024 6:35 AM EDTHealthTrackRx at formerly [facility] GIANNI ALBICANS, PARAPSILOSIS, MZRAJOHNZG018.000 - 30.347 ppm12/29/2024 6:35 AM EDTHealthTrackRx at LabPortCANDIDA ALBICANS, PARAPSILOSIS, TROPICALISNot Xlaibvbv28.000 - 30.347 ppm12/29/2024 6:35 AM EDTHealthTrackRx at formerly [facility] GIANNI JEBBPYER613.000 - 31.618 ppm12/29/2024 6:35 AM EDTHealthTrackRx at LabPortCANDIDA GLABRATANot Ilbioplx03.000 - 31.618 ppm12/29/2024 6:35 AM EDT [facility] at LabPortCANDIDA VJHNTD949.000 - 30.873 ppm12/29/2024 6:35 AM EDTHealthTrackRx at LabPortCANDIDA KRUSEINot Twvxxtci38.000 - 30.873 ppm 12/29/2024 6:35 AM EDTHealthTrackRx at LabPortCHLAMYDIA XSGJCKCIZQN992.000 - 31.586 ppm12/29/2024 6:35 AM EDTHealthTrackRx at LabPortCHLAMYDIA TRACHOMATIS Not Liqssgqt93.000 - 31.586 ppm12/29/2024 6:35 AM EDTHealthTrackRx at LabPort GARDNERELLA YIPRPVNSE38.80(A)19.961 - 24.689 ppm12/29/2024 6:35 AM EDT [facility] at LabPortGARDNERELLA VAGINALISDetected(A)19.961 - 24.689 ppm 12/29/2024 6:35 AM EDTHealthTrackRx at LabPortMEGASPHAERA (TYPES 1, 2)14.639 (A)19.961 - 24.689 ppm12/29/2024 6:35 AM EDTHealthTrackRx at [facility] MEGASPHAERA (TYPES 1, 2)Detected(A)19.961 - 24.689 ppm12/29/2024 6:35 AM EDT [facility] at LabPortNEISSERIA FEZEDNINQJY064.000 - 32.587 ppm12/29/2024 6:36 AM EDTHealthTrackRx at LabPortNEISSERIA GONORRHOEAENot Qvmfjgdl33.000 - 32.587 ppm12/29/2024 6:36 AM EDTHealthTrackRx at LabPortTRICHOMONAS VAGINALIS0 23.000 - 31.995 ppm12/29/2024 6:35 AM EDTHealthTrackRx at LabPortTRICHOMONAS VAGINALISNot Xfyhjqre51.000 - 31.995 ppm12/29/2024 6:35 AM EDTHealthTrackRx at LabPortMYCOPLASMA MUBKRDKTYQ623.961 - 24.689 ppm12/29/2024 6:35 AM EDT [facility] at LabPortMYCOPLASMA GENITALIUMNot Fxfzvbob98.961 - 24.689 ppm 12/29/2024 6:35 AM EDTHealthTrackRx at LabPortERMB, C; MEFA18.28(A)23.000 - 27.500 ppm12/29/2024 6:35 AM EDTHealthTrackRx at LabPortERMB, C; MEFADetected (A)23.000 - 27.500 ppm12/29/2024 6:35 AM EDTHealthTrackRx at formerly [facility] HospitalTET B, TET M20.028(A)23.000 - 27.500 ppm12/29/2024 6:35 AM EDTHealthTrackRx at formerly [facility] HospitalTET B, TET MDetected(A)23.000 - 27.500 ppm12/29/2024 6:35 AM EDTHealthTrackRx at formerly [facility] HospitalSpecimen (Source)Anatomical Location / LateralityCollection Method / VolumeCollection TimeReceived IcanVgxbcl51/22/2025 11:51 AM EDT1 1:22 AM EDT Narrative Authorizing ProviderResult TypeResult StatusAmy Deb CHENEY BLOOD ORDERABLES Final ResultPerforming OrganizationAddressCity/State/ZIP CodePhone Number [facility] [address] [place] [address] from Last 3 Months Insurance MemberSubscriberPlan / Payer (Effective 2024-Present)Name:Darline Browne Member ID:[id number] Relation to Subscriber:SelfName:Darline Browne Subscriber ID:[id number] Payer ID:[id number] Group ID:Not on file Type:Medicare Address: [address] [phone]
--- OUTSIDE RECORDS SUMMARY | 2024-12-30 08:08 | XMS_ITS | Clinical Summary ---
Author Organization [facility] Address [address] [place] [address] Phone Care Team Providers Care Leather Heel Breaster Name Role Phone Lucila Owens MD Primary Care Provider + Allergies No known active allergies Medications MedicationSigDispense QuantityRefillsLast FilledStart DateEnd DateStatus UNABLE TO FIND MIXTURE ADDITIVE Take by mouth.Active ferrous sulfate, dried 160 mg (50 mg iron) ER tablet Take by mouth.Active ascorbic acid, vitamin C, 100 mg chewable tablet Chew.Active cholecalciferol (Vitamin D-3) 50 mcg (2,000 unit) capsule Take 1 capsule (50 mcg) by mouth.Active meclizine (Antivert) 25 mg tablet,chewable Chew 1 tablet (25 mg) in the morning.09/05/2020ctive meloxicam (Mobic) 15 mg tablet Take by mouth.Active levothyroxine (Synthroid, Levoxyl) 25 mcg tablet Indications:Hypothyroidism, unspecifiedTAKE 1 TABLET BY MOUTH EVERY DAY 90 tablet ctive Active Problems ProblemNoted DateDiagnosed IxzuRwelgv84/13/9089Agirokmfc23/13/2023eneralized dtunlorwp71/13/4020Azacxmrclyvgkf87/13/2023Left foot pain04/21/2022Lichen planus 04/21/2022Osteoarthritis of right knee04/21/2022Ovarian dnueqr1904/21/2022Right knee pain04/21/2022Varicose veins of legs04/21/2022reast cancer screening by chzbjtvaz40/13/2023lass 1 obesity due to excess calories with body mass index (BMI) of 32.0 to 32.9 in adult04/21/2022History of tobacco abuse04/21/2022 Family History Medical HistoryRelationNameCommentsFamily history of AnemiaFatherFamily history of malignant neoplasmFatherFamily history of breast cancerMaternal Grandmother Family history of breast cancerMotherFamily history of breast cancerOther Maternal AuntRelationNameStatusCommentsFatherMaternal GrandmotherMotherDeceased OtherAlive Social History Tobacco UseTypesPacks/DayYears UsedDateSmoking Tobacco: NeverSmokeless Tobacco: Never Tobacco Cessation:Counseling Given: Not Answered Alcohol UseStandard Drinks/WeekCommentsNot Asked0 (1 standard drink = 0.6 oz pure alcohol)ocassionalCommentsUnknownSex and Gender InformationValue Date RecordedSex Assigned at BirthNot on fileLegal AatItcogx70/25/2022 10:58 PM ESTGender IdentityNot on fileSexual OrientationNot on file Last Filed Vital Signs Vital SignReadingTime TakenCommentsBlood Pzxtxbpq848/6001/21/2022 10:47 AM EST Ymqaz685201/21/2022 10:47 AM FUCGgibiiewiyd91.7 ??C (96.2 ??F)01/21/2022 10:47 AM ESTRespiratory Zopf975403/23/2021 10:47 AM ESTOxygen Aernylwwqo90%01/21/2022 10:47 AM ESTInhaled Oxygen Concentration--Qlmvkr18.8 kg (220 lb)01/21/2022 10:47 AM ILUQqqkmz291.5 cm (5' 9.5 )01/21/2022 10:47 AM ESTBody Mass Index32.02103/23/2021 10:47 AM EST Plan of Treatment Health MaintenanceDue DateLast DoneCommentsCT Fkebemhbppgq1960FIT-DNA (Cologuard)1960HIV Ctwepnkrz19/01/7048Rktencxtznjye1960MMR Vaccines (1 of 1 - Standard series)01/07/1961Hepatitis C Fflwuhool90/01/1978HPV/Cotest 01/07/1981Pneumococcal Vaccine (1 of 1 - PCV)01/07/2010Zoster Vaccines (1 of 2) 01/07/2010TSH Level/, 12/30/2019, 09/07/2018FIT11/13/2023 11/12/2022ervical Cancer Mjdwmwspa33/20/2025Pap Smear Diabetes Mqcfiphhl38/, 09/05/2020, 09/05/2020, Additional history existsInfluenza Vaccine (#1)/COVID-19 Vaccine ( - season)11/07/20243546Unwslxhrc41, 03/30/2024, 03/06/2023, Additional history azveheHqulmnzluln31/01/202603/03/2015Colorectal Cancer Dzyzvnbno66/01/2026Lipid Panel, 12/30/2019Yearly Adult Mouqaweb29, 10/15/2023, 06/26/2021, Additional history exists DTaP/Tdap/Td Vaccines (3 - Td or Tdap), 04/14/2013RSV High Risk: (Elderly (60+) or Population) (1 - 1-dose 75+ series)01/07/2035 Hepatitis A VaccinesAged Out04/14/2013, 01/24/2005No longer eligible based on patient's age to complete this topicHepatitis B VaccinesAged Out06/16/2013, 04/14/2013No longer eligible based on patient's age to complete this topicHIB VaccinesAged OutNo longer eligible based on patient's age to complete this topic HPV VaccinesAged OutNo longer eligible based on patient's age to complete this topicIPV VaccinesAged OutNo longer eligible based on patient's age to complete this topicMeningococcal VaccineAged OutNo longer eligible based on patient's age to complete this topicRotavirus VaccinesAged OutNo longer eligible based on patient's age to complete this topic Procedures Procedure NamePriorityDate/TimeAssociated DiagnosisCommentsFECAL OCCULT BLOOD GMXBZSVIUTDFhclhsu86/06/2023 9:44 AM EDTMAMMOGRAM - ONBASE SCAN03/05/2021 COMPREHENSIVE METABOLIC JSNVWScrzdrm06/30/2021 1:15 PM EDT LIPID NJOWZMlugwqu32/30/2021 1:15 PM EDT JUPSmvlnjx51/30/2021 1:15 PM EDT from Last 3 Months or Most Recently Relevant to Health Maintenance Results * Fecal Occult Blood Immunoassy (11/12/2022 9:44 AM EDT)Specimen (Source) Anatomical Location / LateralityCollection Method / VolumeCollection Time Received TimeStoolStool / Unknown Narrative Authorizing ProviderResult TypeResult StatusFatmata WALSH MICROBIOLOGY - GENERAL ORDERABLESFinal Result * MAMMOGRAM - ONBASE SCAN (03/05/2021)Anatomical RegionLateralityModality Mammography Narrative 03/05/2021 Ordered by an unspecified provider. Authorizing ProviderResult TypeResult StatusOnbase ConversionIMG BI PROCEDURES Final Result * Thyroid Stimulating Hormone (09/05/2020 1:15 PM EDT)ComponentValueRef Range Test MethodAnalysis TimePerformed AtPathologist SignatureTSH3.270.44 - 3.98 [facility] LABComment: TSH testing is performed using different testing methodology at [facility] than at other [facility]. Direct result comparisons should only be made within the same method. Specimen (Source)Anatomical Location / LateralityCollection Method / Volume Collection TimeReceived Time09/05/2020 1:15 PM EDT09/05/2020 7:57 PM EDT Narrative Authorizing ProviderResult TypeResult StatusLucila WALSH BLOOD ORDERABLESFinal ResultPerforming OrganizationAddressCity/State/ZIP CodePhone Number [facility] * (ABNORMAL) Lipid Panel (09/05/2020 1:15 PM EDT)ComponentValueRef RangeTest MethodAnalysis TimePerformed AtPathologist KfmifzliwNmpgsooirqf647(H)0 - 199 mg/dLU[facility] LABComment: . ?AGE ?DESIRABLE ?? BORDERLINE HIGH ?? HIGH 0-19 Y 0 - 169 170 - 199 >/= 200 20-24 Y 0 - 189 190 - 224 >/= 225 >24 Y 0 - 199 200 - 239 >/= 240 All ranges are based on fasting samples. Specific therapeutic targets will vary based on patient-specific cardiac risk. . Pediatric guidelines reference:Pediatrics 2011, 128(S5). Adult guidelines reference: NCEP ATPIII Guidelines, ??JB 2001, 258:2486-97 . Venipuncture immediately after or during the administration of Metamizole may lead to falsely low results. Testing should be performed immediately prior to Metamizole dosing. HDL58.0mg/dLU[facility] LABComment: . ?AGE ?VERY LOW ?? LOW ? NORMAL ?HIGH ?? 0-19 Y < 35 < 40 40-45 ---- 20-24 Y ---- < 40 >45 ---- >24 Y ---- < 40 40-60 >60 . Cholesterol/HDL Ratio3.4[facility] LABComment: REF VALUES DESIRABLE < 3.4 HIGH RISK > 5.0 MAW417(H)0 - 99 mg/dLU[facility] LABComment: . ? NEAR ?BORD ?AGE ?DESIRABLE ??OPTIMAL ?HIGH ? HIGH ? VERY HIGH 0-19 Y 0 - 109 --- 110-129 >/= 130 ---- 20-24 Y 0 - 119 --- 120-159 >/= 160 ---- >24 Y 0 - 99 100-129 130-159 160-189 >/=190 . KVYR495 - 40 mg/dL[facility] HRZGjukffueyajia3768 - 149 mg/dLU[facility] LABComment: . ?AGE ?DESIRABLE ?? BORDERLINE HIGH ?? HIGH ? VERY HIGH 0 D-90 D ?19 - 174 ? ---- ? ---- ?---- 91 D- 9 Y 0 - 74 75 - 99 >/= 100 ---- 10-19 Y 0 - 89 90 - 129 >/= 130 ---- 20-24 Y 0 - 114 115 - 149 >/= 150 ---- >24 Y 0 - 149 150 - 199 200- 499 >/= 500 . Venipuncture immediately after or during the administration of Metamizole may lead to falsely low results. Testing should be performed immediately prior to Metamizole dosing. Specimen (Source)Anatomical Location / LateralityCollection Method / Volume Collection TimeReceived Time09/05/2020 1:15 PM EDT09/05/2020 7:57 PM EDT Narrative Authorizing ProviderResult TypeResult StatusJennarash WALSH BLOOD ORDERABLESFinal ResultPerforming OrganizationAddressCity/State/ZIP CodePhone Number [facility] * (ABNORMAL) Comprehensive Metabolic Panel (09/05/2020 1:15 PM EDT)Component ValueRef RangeTest MethodAnalysis TimePerformed AtPathologist SignatureGlucose 8374 - 99 mg/dL[facility] YHSNurfrs407416 - 145 mmol/[facility] LABPotassium4.33.5 - 5.3 mmol/[facility] Tmaeyype56874 - 107 mmol/[facility] TKORgairshlleq1465 - 32 mmol/L [facility] LABAnion Rhe5636 - 20 mmol/[facility] Urea Iaqlyjkc322 - 23 mg/dLU[facility] LABCreatinine0.970.50 - 1.05 mg/dLU[facility] LABGLOMERULAR FILTRATION RATE-NON 58(A)>60 mL/min/1.89n2FELLKVUF HEALTH NORTH LABGLOMERULAR FILTRATION RATE- EXOJHRWB93>60 mL/min/1.63m5NSGKIDUF [facility]ALTH [facility] LABComment: CALCULATIONS OF ESTIMATED GFR ARE PERFORMED USING THE MDRD STUDY EQUATION FOR THE IDMS-TRACEABLE CREATININE METHODS. CLIN CHEM 2007;53:766-72 Calcium9.38.6 - 10.3 mg/dLUF [facility]ALTH [facility] LABAlbumin3.93.4 - 5.0 g/dL [facility] LABAlkaline Gdwvhgvqdxk73098 - 136 U/[facility] LABTotal Protein7.06.4 - 8.2 g/dLU[facility] BYYFOY038 - 39 U/L [facility] LABTotal Bilirubin0.30.0 - 1.2 mg/dLU[facility] LABALT (SGPT)257 - 45 U/[facility] LABComment: Patients treated with Sulfasalazine may generate falsely decreased results for ALT. Specimen (Source)Anatomical Location / LateralityCollection Method / Volume Collection TimeReceived Time09/05/2020 1:15 PM EDT09/05/2020 7:57 PM EDT Narrative Authorizing ProviderResult TypeResult StatusJennarash WALSH BLOOD ORDERABLESFinal ResultPerforming OrganizationAddressCity/State/ZIP CodePhone Number [facility] from Last 3 Months or Most Recently Relevant to Health Maintenance Insurance Care Teams Team MemberRelationshipSpecialtyStart DateEnd Date Lucila Owens MD [address] [address] PCP - Boytxcq38/23/20
--- OUTSIDE RECORDS SUMMARY | 2024-12-30 08:08 | XMS_ITS | Encounter Summary ---
Author Organization [facility] Address [address] [facility] [place] [address] Care Team Providers Care Talent Assistant Name Role Phone Unavailable Primary Care Provider Unavailabl e Encounter Details DateTypeDepartmentCare Team (Latest Contact Info)Rwzyeiidtqe66/22/2025amboo flowsheet [facility] OBGYN [address] [place] [address] Tana Boyd PA [address] [place], [facility] Social History Tobacco UseTypesPacks/DayYears UsedDateSmoking Tobacco: Never Assessed CommentsNoSex and Gender InformationValueDate RecordedSex Assigned at BirthNot on fileLegal BjwBiklnp53/15/2023 6:48 PM EDTGender IdentityNot on fileSexual OrientationNot on filedocumented as of this encounter Plan of Treatment DateTypeDepartmentCare Team (Latest Contact Info)Ldywgjdcbfp87/06/2025 9:30 AM ESTOffice Visit [facility] [address] [place] [phone] Nelia Sal MD [address] [place] [address] documented as of this encounter Visit Diagnoses Not on filedocumented in this encounter
--- OUTSIDE RECORDS SUMMARY | 2024-12-30 08:09 | XMS_ITS | Clinical Summary ---
Author Organization [facility] Address [address] [facility] [place] [address] Care Team Providers Care Cotton Jammer Name Role Phone Unavailable Primary Care Provider Unavailabl e Source Comments The following information is NOT included in Care Everywhere downloads:Psychiatric notes, ECG results, Cardiac Rehab notes, Pulmonary Function notes, data from [facility] (includes but not limited toPregnancy data,audiograms, eye exams, pre-surgical evaluation notes, well-child exam data).[facility] Medications MedicationSigDispense QuantityRefillsLast FilledStart DateEnd DateStatus bacitracin 500 UNIT/GM ointment Apply topically 3 times daily. Apply thin layer to affected area. Left elbow 14 g Active Immunizations ImmunizationAdministration DatesNext DueHep A (peds/adol, 2 dose) (CVX=83) 01/24/2005Hep B (peds/adol, 3-dose) (CVX=08)06/16/2013,04/14/2013Hepatitis A, Adult (CVX=52)04/14/2013Influenza, injectable, trivalent, preservative (TGJ=387) 11/22/2015Tdap (QVU=613)10/12/2017,04/14/2013Typhoid, Vi capsular polysaccharhide (ViCPS) (AFG=619)04/14/2013Yellow Fever (CVX=37)04/07/2013 Social History Tobacco UseTypesPacks/DayYears UsedDateSmoking Tobacco: Never Assessed CommentsUnknownSex and Gender InformationValueDate RecordedSex Assigned at Not on fileLegal GodKraeqt79/05/2018 9:11 PM EDTGender IdentityNot on fileSexual OrientationNot on file Last Filed Vital Signs Vital SignReadingTime TakenCommentsBlood Vyipdohv631/8408 7:00 AM EDT Jbcgo1454 7:00 AM BWDJkkpxdenqhq31.8 ??C (98.2 ??F)10/12/2017 3:58 AM EDTRespiratory Bkgv2237 7:00 AM EDTOxygen Ynhfyjrlbw78%10/12/2017 7:00 AM EDTInhaled Oxygen Concentration--Weight--Height--Body Mass Index-- Plan of Treatment Health MaintenanceDue DateLast ZhypZxxrsydgXttjjroaooi1960HIV Test 01/07/1975Hepatitis C Hofhbqrx36/01/1978Pap Smear01/07/1981CRC Screening 01/07/2005Cologuard (Stool DNA)01/07/2005FIT01/07/2005Pneumococcal Vaccine(s) (50+ yrs) (1 of 1 - PCV)01/07/2010Shingles (RZV) Vaccine (1 of 2)01/07/2010 Hepatitis A (HAV) Vaccine (2 of 2 - Risk 2-dose series), 01/24/20054875Auvffkmqbqt66, 03/29/20151984Dnxbfjimygv90/05/2021 06/12/2015COVID-19 Vaccine ( - 2024- season)2024Influenza Vaccine (#1) 509/Tetanus (Td or Tdap) Hwewmtv21/06/20557410/12/2017, 04/14/2013 RSV vaccine (adult) (1 - 1-dose 75+ series)01/07/2035Hepatitis B (HBV) Vaccine Aged Out06/16/2013, 04/14/2013No longer eligible based on patient's age to complete this topicTdap AhxtpxbNopdpgakm00/06/2018, 04/14/2013 Insurance
--- OUTSIDE RECORDS SUMMARY | 2024-12-30 08:11 | XMS_ITS | Patient Health Record ---
Author Organization [facility] in [place] Address [address] [place] [address] Care Team Providers Care Gandy Dancer Name Role Phone Roman EVANGELISTA, Lucila Primary Care Provider Nelida Alvarez Unavailable [phone] Allergies No Known Allergies Reason For Referral No Information Medications Medication SIG (Take, Route, Frequency, Duration) Notes Start Date End Date Status Levothyroxine Sodium 25 MCG 1 tablet in the morning on an empty stomach Orally Once a day Not-TakingMeloxicam 15 MG1 tablet Orally Once a day; Duration: 30 days04/01/2023 Not-TakingFish OilActiveTylenol 325 MG1 tablet as needed Orally every 4 hrs ActiveOsteo Bi-Flex Adv Double StActiveVitamin CActiveVitamin B 12Active Alendronate Sodium 70 MG1 tablet 30 minutes before the first food, beverage or medicine of the day with plain water Orally once a week; Duration: 84 days 11/11/2022Not-TakingVitamin DActive Social History Tobacco Use: Social History Observation Description Date Details (start date - stop date) Former Smoker NA - NA Tobacco Use/Smoking Question Answer Notes Patient is a former smoker Problems Problem Type SNOMED Code ICD Code Onset Dates Problem Status W/U Status Risk Notes Problem Information temporarily unavaila ble Primary osteoarthritis, left ankle and foot (M19.072) ActiveconfirmedProblemInformation temporarily unavailableOther acquired deformities of left foot (M21.6X2)ActiveconfirmedProblemInformation temporarily unavailableContracture, left ankle (M24.572)ActiveconfirmedProblemInformation temporarily unavailableIdiopathic aseptic necrosis of unspecified bone (M87.00) ActiveconfirmedProblemInformation temporarily unavailableOther specified disorders of bone, ankle and foot (M89.8X7)ActiveconfirmedProblemInformation temporarily unavailableHypothyroidism (E03.9)ActiveconfirmedProblemInformation temporarily unavailableArthritis (M19.90)ActiveconfirmedProblemInformation temporarily unavailablePeptic ulcer (K27.9)ActiveconfirmedProblemInformation temporarily unavailableAseptic necrosis (M87.00)ActiveconfirmedProblem Information temporarily unavailablePes cavus (M21.6X9)ActiveconfirmedProblem Information temporarily unavailableCongenital pes cavus, left foot (Q66.72) ActiveconfirmedProblemInformation temporarily unavailableCavus deformity of left foot (Q66.72)ActiveconfirmedProblemInformation temporarily unavailableEquinus contracture of left ankle (M24.572)ActiveconfirmedProblemInformation temporarily unavailableVarus deformity of foot (Q66.30)Activeconfirmed Encounters Encounter Location Date Provider Diagnosis [facility] [address] [place] [address] 05/17/2024 Nelida Easton Plan Of Treatment Pending Test Test Name Order Date BUN 11/03/2023 CREATININE 11/03/2023 CT CHEST W CON 11/04/2023 CT abdomen pelvis w con 11/04/2023 Next Appt Details Provider Name:Nelida Easton , 01/03/2025 09:30:00 AM, [address] [place], [address], Insurance Providers Payer Name Payer Address Payer Phone Subscriber Number Group Number Insured Name Patient Relationship to Insured Coverage Start Date Coverage End Date [employer] [address] [place] [id number] Darline Browne Self - patient is the insured 0 Medical (General) History Medical History History ICD Code Arthritis M19.90 thyroid disease joint replacementovarian cancervaricose veinslymphedemaSurgical History Surgery Date(Month/Year) left subtalar joint fusion, talonavicular joint fusion, navicular cuneform joint fusion, 1st and 2nd tarsometatarsal joint fusion, gastrocnemius recession excision of phlebolith 11/17/2022 shoulder replacement 2019 left foot surgery x3 1980 right foot surgery 1989 total hysterectomy 2021 Hospitalization History Reason Date(Month/Year) see above
--- OUTSIDE RECORDS SUMMARY | 2024-12-30 08:13 | XMS_ITS | Clinical Summary ---
Author Organization [facility] Address [address] [place] [address] Care Team Providers Care Press Assistant And Feeder Name Role Phone No, Physician Primary Care Provider Unavailabl e Social History Tobacco UseTypesPacks/DayYears UsedDateSmoking Tobacco: Never Assessed CommentsUnknownSex and Gender InformationValueDate RecordedSex Assigned at Not on fileLegal PuuJbgvwy83/26/2014 4:24 AM EDTGender IdentityNot on fileSexual OrientationNot on file Last Filed Vital Signs Vital SignReadingTime TakenCommentsBlood Pressure--Pulse--Temperature-- Respiratory Rate--Oxygen Saturation--Inhaled Oxygen Concentration--Perldr13.8 kg (220 lb)03/29/2024 12:34 PM HZLIqvrow501.3 cm (5' 9 )03/29/2024 12:34 PM ESTBody Mass Index32.49003/29/2024 12:34 PM EST Plan of Treatment Health MaintenanceDue DateLast DoneCommentsCT Oxzzhcxhgdjx1960Fecal DNA 1960MMR Vaccines (1 of 1 - Standard series)1Depression Screening/Follow-Up (PHQ-2/9)1972HIV Dbqcrixwt70/01/1975Hepatitis C Hjgjrdhni11/01/1978Flexible czpsorwmpzaoh14/01/2010Pneumococcal Vaccine: 50+ Years (1 of 1 - PCV)01/07/2010Zoster Vaccines (1 of 2)01/07/2010Fecal occult blood test (FOBT,FIT)/08/20224572Axalknacr04/29/202412/, 02/28/2020, 02/21/2019, Additional history existsPap Smear504/, 10/10/1998Wellness Visit/10/2023, 06/26/2021, 11/17/2017COVID-19 Vaccine ( season)2024Influenza Vaccine (#1)9/ Bzbvkzfrjji63Colorectal Cancer Screening/Upmthtcgtd75/01/2026 Cervical Cancer Gkjngybpm27/20/2027HPV/Caknpr65 Tetanus/Diphtheria/Pertussis (3 - Td or Tdap), 04/14/2013RSV Vaccines (1 - 1-dose 75+ series)01/07/2035Hepatitis A VaccinesAged Out 04/14/2013, 01/24/2005No longer eligible based on patient's age to complete this topicHepatitis B VaccinesAged Out06/16/2013, 04/14/2013No longer eligible based on patient's age to complete this topicHIB VaccinesAged OutNo longer eligible based on patient's age to complete this topicHPV VaccinesAged OutNo longer eligible based on patient's age to complete this topicIPV VaccinesAged OutNo longer eligible based on patient's age to complete this topicMeningococcal ACWY VaccineAged OutNo longer eligible based on patient's age to complete this topic Meningococcal B VaccineAged OutNo longer eligible based on patient's age to complete this topicRotavirus VaccinesAged OutNo longer eligible based on patient's age to complete this topic Procedures Procedure NamePriorityDate/TimeAssociated DiagnosisCommentsTHINPREP PAP SMEAR Vzeiytg3910/10/1998 12:00 AM EDT from Last 3 Months or Most Recently Relevant to Health Maintenance Results * Thinprep Pap Smear, Screening (10/10/1998 12:00 AM EDT)Specimen (Source) Anatomical Location / LateralityCollection Method / VolumeCollection Time Received Time Narrative [place] - 10/22/1998 4:10 PM EDT PATIENT: WILLY BROWNE Specimen Source: Cervical Specimen: nventional Pap Pap Smear Reason: Clinical Information: Prior Paps: PRIOR PAP SMEAR DIAGNOSES: No cases found SPECIMEN ADEQUACY: Satisfactory, but limited by: ...partially obscuring inflammation. GENERAL CATEGORIZATION: Within Normal Limits Place of Service: This test was performed at the [facility], [address] [place] [address] Final by BERONICA Aguiar(ASCP). ??Electronically signed October 22, 1998 4:10 PM Authorizing ProviderResult TypeResult StatusHistorical Star 3 Provider PATHOLOGY/CYTOLOGY ORDERABLESFinal ResultPerforming OrganizationAddress City/State/ZIP CodePhone Number [place] from Last 3 Months or Most Recently Relevant to Health Maintenance Insurance Care Teams Team MemberRelationshipSpecialtyStart DateEnd Date No, Physician [facility] PCP - Jsffmhq17/10/24
--- OUTSIDE RECORDS SUMMARY | 2024-12-30 08:13 | XMS_ITS | Encounter Summary ---
Author Organization [facility] Address [address] [place] [address] Care Team Providers Care Community Outreach Specialist Name Role Phone Unavailable Primary Care Provider Unavailabl e Encounter Details DateTypeDepartmentCare Team (Latest Contact Info)Iliaeyduldx94/23/2025bstract [facility] [address] [place] [address] [place] [address] Nadia Marie MA Social History Tobacco UseTypesPacks/DayYears UsedDateSmoking Tobacco: Never Assessed CommentsNoSex and Gender InformationValueDate RecordedSex Assigned at BirthNot on fileLegal JsdRyuska45/15/2023 6:48 PM EDTGender IdentityNot on fileSexual OrientationNot on filedocumented as of this encounter Plan of Treatment DateTypeDepartmentCare Team (Latest Contact Info)Rcfnesdejwl23/06/2025 9:30 AM ESTOffice Visit [facility] [address] [place] [address] Nelia Sal MD [address] [place] [address] documented as of this encounter Visit Diagnoses Not on filedocumented in this encounter
--- OUTSIDE RECORDS SUMMARY | 2024-12-30 08:14 | XMS_ITS | Encounter Summary ---
Author Organization [facility] Address [address] [place] [address] Care Team Providers Care Electric Meter Reader Name Role Phone Unavailable Primary Care Provider Unavailabl e Encounter Details DateTypeDepartmentCare Team (Latest Contact Info)Nncaholsbnl15/23/2025Telephone [facility] [address] [place] [address] [place] [address] Nadia Marie MA Social History Tobacco UseTypesPacks/DayYears UsedDateSmoking Tobacco: Never Assessed CommentsNoSex and Gender InformationValueDate RecordedSex Assigned at BirthNot on fileLegal LccWrabbq13/15/2023 6:48 PM EDTGender IdentityNot on fileSexual OrientationNot on filedocumented as of this encounter Miscellaneous Notes * Telephone Encounter - Nadia Marie MA - 12/29/2024 11:33 AM EDT Pt called in, Pharmacy confirmed. Medication was sent. * Telephone Encounter - Nadia Marie MA - 12/29/2024 10:42 AM EDT Patient was informed of test results and recommendations. The patient is uncertain which pharmacy is covered under her insurance and will call back once she determines where the prescription should be sent. documented in this encounter Plan of Treatment DateTypeDepartmentCare Team (Latest Contact Info)Pfhayifusnp76/06/2025 9:30 AM ESTOffice Visit [facility] [address] [place] [address] Nelia Sal MD [address] [place] [address] documented as of this encounter Visit Diagnoses Diagnosis BV (bacterial vaginosis) Unspecified vaginitis and vulvovaginitis documented in this encounter
--- OUTSIDE RECORDS SUMMARY | 2024-12-30 08:14 | XMS_ITS | Encounter Summary ---
Author Organization [facility] Address [address] [facility] [place] [address] Care Team Providers Care Air Pollution Control Engineer Name Role Phone Unavailable Primary Care Provider Unavailabl e Encounter Details DateTypeDepartmentCare Team (Latest Contact Info)Ytkksrvjsaf69/22/2025External Result Encounter [facility] External Department Unsolicited Tana Boyd PA [address] [place] [address] [place] [address] Social History Tobacco UseTypesPacks/DayYears UsedDateSmoking Tobacco: Never Assessed CommentsNoSex and Gender InformationValueDate RecordedSex Assigned at BirthNot on fileLegal JkqIhpvcu00/15/2023 6:48 PM EDTGender IdentityNot on fileSexual OrientationNot on filedocumented as of this encounter Plan of Treatment DateTypeDepartmentCare Team (Latest Contact Info)Qnzktputodx95/06/2025 9:30 AM ESTOffice Visit [facility] [address] [place] [address] Nelia Sal MD [address] [place] [address] documented as of this encounter Procedures Procedure NamePriorityDate/TimeAssociated DiagnosisCommentsRECURRENT VAGINITIS (HTRX)Xaactfr8012/28/2024 11:51 AM EDT documented in this encounter Results * (ABNORMAL) RECURRENT VAGINITIS (HTRX) (12/28/2024 11:51 AM EDT)ComponentValue Ref RangeTest MethodAnalysis TimePerformed AtPathologist SignatureATOPOBIUM SQHKOEY65.675(A)19.961 - 24.689 ppm12/29/2024 6:35 AM EDTHealthTrackRx at LabPortATOPOBIUM VAGINAEDetected(A)19.961 - 24.689 ppm12/29/2024 6:35 AM EDT [facility] IndianaBVAB 2,3 (BACTERIAL VAGINOSIS ASSOCIATED BACTERIA 2, 3); MOBILUNCUS UQU615.961 - 24.689 ppm12/29/2024 6:35 AM EDTHealthTrackRx at LabHeart Center Of IndianaBVAB 2,3 (BACTERIAL VAGINOSIS ASSOCIATED BACTERIA 2, 3); MOBILUNCUS SPP Not Purlqbjs86.961 - 24.689 ppm12/29/2024 6:35 AM EDTHealth[facility]Rx [facility] GIANNI ALBICANS, PARAPSILOSIS, ZNGJWKYLJL384.000 - 30.347 ppm12/29/2024 6:35 AM EDTHealthTrackRx at MultiCare HealthCANDIDA ALBICANS, PARAPSILOSIS, TROPICALISNot Hutjjagr52.000 - 30.347 ppm12/29/2024 6:35 AM EDTHealthTrackRx at [facility] GIANNI BRXOPTFD169.000 - 31.618 ppm12/29/2024 6:35 AM EDTHealthTrackRx at [facility]Care HealthCANDIDA GLABRATANot Hfwagkfm88.000 - 31.618 ppm12/29/2024 6:35 AM EDT [facility] at LabPortCANDIDA OAOXDB812.000 - 30.873 ppm12/29/2024 6:35 AM EDTHealthTrackRx at [facility]Care HealthCANDIDA KRUSEINot Rjpqtxjv69.000 - 30.873 ppm 12/29/2024 6:35 AM EDTHealthTrackRx at [facility] HospitalPortCHLAMYDIA GLVECWHDHAE716.000 - 31.586 ppm12/29/2024 6:35 AM EDTHealthTrackRx at [facility]Care HealthCHLAMYDIA TRACHOMATIS Not Wlbihbyv46.000 - 31.586 ppm12/29/2024 6:35 AM EDTHealth[facility]Rx at [facility] GARDNERELLA AVLCGIUYQ06.80(A)19.961 - 24.689 ppm10 6:35 AM EDT [facility] HealthGARDNERELLA VAGINALISDetected(A)19.961 - 24.689 ppm 12/29/2024 6:35 AM EDTHealthTrackRx at LabHeart Center Of IndianaMEGASPHAERA (TYPES 1, 2)14.639 (A)19.961 - 24.689 ppm12/29/2024 6:35 AM EDTHealthTrackRx at [facility] MEGASPHAERA (TYPES 1, 2)Detected(A)19.961 - 24.689 ppm12/29/2024 6:35 AM EDT [facility] HealthNEISSERIA DSUZZWFHVWA897.000 - 32.587 ppm12/29/2024 6:36 AM EDTHealthTrackRx at LabHeart Center Of IndianaNEISSERIA GONORRHOEAENot Tfqhdpjh64.000 - 32.587 ppm12/29/2024 6:36 AM EDTHealthTrackRx at LabPortTRICHOMONAS VAGINALIS0 23.000 - 31.995 ppm12/29/2024 6:35 AM EDTHealthTrackRx at LabPortTRICHOMONAS VAGINALISNot Smanntep95.000 - 31.995 ppm12/29/2024 6:35 AM EDTHealthTrackRx at [facility]Care HealthMYCOPLASMA DIKVSRUFAZ662.961 - 24.689 ppm12/29/2024 6:35 AM EDT [facility] LabHeart [facility] Of IndianaMYCOPLASMA GENITALIUMNot Goezpnvw01.961 - 24.689 ppm 12/29/2024 6:35 AM EDTHealthTrackRx at [facility], C; MEFA18.28(A)23.000 - 27.500 ppm12/29/2024 6:35 AM EDTHealthTrackRx at LabWood RiverMB, C; MEFADetected (A)23.000 - 27.500 ppm12/29/2024 6:35 AM EDTHealthTrackRx at MultiCare HealthTET B, TET M20.028(A)23.000 - 27.500 ppm12/29/2024 6:35 AM EDTHealthTrackRx at MultiCare HealthTET B, TET MDetected(A)23.000 - 27.500 ppm12/29/2024 6:35 AM EDTHealthTrackRx at MultiCare HealthSpecimen (Source)Anatomical Location / LateralityCollection Method / VolumeCollection TimeReceived ZjsjPptavn79/22/2025 11:51 AM EDT1 1:22 AM EDT Narrative Authorizing ProviderResult TypeResult StatusAmy Deb CHENEY BLOOD ORDERABLES Final ResultPerforming OrganizationAddressCity/State/ZIP CodePhone Number [facility] [address] [address] documented in this encounter Visit Diagnoses Not on filedocumented in this encounter
--- NOTE | 2024-12-30 08:19 | CT_ITS ---
The [address] [address] Patient Name: WILLY ALVAREZ MRN: [id number] date: 1960 Sex: F Assigned Patient Location: LAB Current Patient Location: LAB Accession/Order Number: [id number] Exam Date: 12/30/2024 08:30 Report Date: 12/30/2024 09:16 At the request of: AISHA SAAVEDRA MD Procedure: CT abdomen pelvis w con CT CHEST, ABDOMEN AND PELVIS WITH INTRAVENOUS CONTRAST: CLINICAL HISTORY: Follow-up ovarian cancer stage 2 COMPARISON: 11/03/2023 TECHNIQUE: Spiral images were obtained through the chest, abdomen and pelvis following oral and intravenous administration of 100 mL of Omnipaque 300. Images were reviewed using both narrow and wide window settings. This CT exam was performed using one or more following dose reduction techniques: Automated exposure control, adjustment of the mA and/or kV according to patient size, or use of iterative reconstruction technique. The heart is normal size. No pericardial effusion is present. No aortic aneurysm or dissection is seen. Similar small nonpathologic lymph nodes are visualized. There is minor lingular scarring or atelectasis. No consolidation, pleural effusion or pneumothorax is seen. No developing nodularity is identified. There is S-shaped thoracic scoliotic curvature and degenerative changes in spine. No calcified gallstones are identified. No intrahepatic masses are seen. The spleen, pancreas and adrenal glands show no acute findings. There are symmetric renal nephrograms, without hydronephrosis. The abdominal aorta is normal caliber. No adenopathy or ascites is noted. There is a small umbilical hernia containing fat. There are normal caliber small bowel loops. Stool is visualized along the colon, greater on the right. There is thoracolumbar dextroscoliotic curvature. There are mild degenerative changes at the spine, greatest at the lower facets. Images through the pelvis show no dilated small bowel. No appendiceal inflammation is seen. The distal colon is underdistended. No diverticular disease is noted. There is prior hysterectomy. The urinary bladder is unremarkable. There is no pelvic lymphadenopathy or ascites. CT/CT chest w con IMPRESSION: NO EVIDENCE OF RECURRENT OR METASTATIC DISEASE. NO ACUTE FINDINGS. Impression dictated by: Sola Ogden M.D. 12/30/2024 9:16 AM Dictation Location: [place] [address] Electronically authenticated by: [id number] Y Date: 12/30/2024 09:16
--- NOTE | 2024-12-30 08:19 | CT_ITS ---
The [address] [address] Patient Name: WILLY ALVAREZ MRN: [id number] date: 1960 Sex: F Assigned Patient Location: LAB Current Patient Location: LAB Accession/Order Number: [id number] Exam Date: 12/30/2024 08:30 Report Date: 12/30/2024 09:16 At the request of: AISHA SAAVEDRA MD Procedure: CT abdomen pelvis w con CT CHEST, ABDOMEN AND PELVIS WITH INTRAVENOUS CONTRAST: CLINICAL HISTORY: Follow-up ovarian cancer stage 2 COMPARISON: 11/03/2023 TECHNIQUE: Spiral images were obtained through the chest, abdomen and pelvis following oral and intravenous administration of 100 mL of Omnipaque 300. Images were reviewed using both narrow and wide window settings. This CT exam was performed using one or more following dose reduction techniques: Automated exposure control, adjustment of the mA and/or kV according to patient size, or use of iterative reconstruction technique. The heart is normal size. No pericardial effusion is present. No aortic aneurysm or dissection is seen. Similar small nonpathologic lymph nodes are visualized. There is minor lingular scarring or atelectasis. No consolidation, pleural effusion or pneumothorax is seen. No developing nodularity is identified. There is S-shaped thoracic scoliotic curvature and degenerative changes in spine. No calcified gallstones are identified. No intrahepatic masses are seen. The spleen, pancreas and adrenal glands show no acute findings. There are symmetric renal nephrograms, without hydronephrosis. The abdominal aorta is normal caliber. No adenopathy or ascites is noted. There is a small umbilical hernia containing fat. There are normal caliber small bowel loops. Stool is visualized along the colon, greater on the right. There is thoracolumbar dextroscoliotic curvature. There are mild degenerative changes at the spine, greatest at the lower facets. Images through the pelvis show no dilated small bowel. No appendiceal inflammation is seen. The distal colon is underdistended. No diverticular disease is noted. There is prior hysterectomy. The urinary bladder is unremarkable. There is no pelvic lymphadenopathy or ascites. CT/CT abdomen pelvis w con IMPRESSION: NO EVIDENCE OF RECURRENT OR METASTATIC DISEASE. NO ACUTE FINDINGS. Impression dictated by: Sola Ogden M.D. 12/30/2024 9:16 AM Dictation Location: [place] [address] Electronically authenticated by: [id number] Y Date: 12/30/2024 09:16
[2024-12-30 08:23] LABS: Blood Urea Nitrogen 21.0 mg/dL (7.0-18.0); Estimated GFR (African America >60 (>=60 mL/min/1.73m^2); Estimated GFR (Non-African Ame >60 (>=60 mL/min/1.73m^2)
== END 2024-12-30 08:02 | disposition home or self-care (01) ==
LOC: LAB 08:03
PROVIDERS: Visit Provider Internal Medicine Hematology & Oncology
DX: R97.1 Elevated cancer antigen 125 [CA 125] (principal); C56.3 Malignant neoplasm of bilateral ovaries
CPT/HCPCS: 36415; 71260; 74177; 82565; 84520; Q9967

== ENCOUNTER 2025-01-03 09:13 | Outpatient (RCR) | payer MEDICARE, OTHER, SELFPAY | END 2025-01-06 23:59 | disposition home or self-care (01) | LOC: HEMC 09:13 | PROVIDERS: Visit Provider Internal Medicine Hematology & Oncology | DX: C56.3 Malignant neoplasm of bilateral ovaries (principal); R97.1 Elevated cancer antigen 125 [CA 125]; Z80.3 Family history of malignant neoplasm of breast; Z90.710 Acquired absence of both cervix and uterus; Z87.891 Personal history of nicotine dependence | CPT/HCPCS: G0463 ==